=== PATIENT | male | born 1955 | race Caucasian/White ===

== ENCOUNTER 2020-10-08 08:16 | Inpatient (IN) | payer OTHER ==
[~2020-10-08] VITALS: Ht 180.3 cm; Wt 75.7 kg
[2020-10-08] MEDS ORDERED: INSULIN LANTUS (GLARGINE) 1 /0.01ml (100units/ml) SC ONE (08:45)
[2020-10-08] MEDS: SODIUM CHLORIDE 0.9% 1,000 ML IV SCH ×4 (08:45→21:59)
[2020-10-08] MEDS ORDERED: InsuLIN R (HUMAN) 100 UNITS in SODIUM CHL 0.9% 99 ML IV SCH (08:45)
[2020-10-08] MEDS ORDERED: DEXTROSE (50%) 50ML SYRG IV PRN ×2 (08:45→09:45)
[2020-10-08] MEDS: ACCU-CHEK COMFORT CURVE STRIP VI SCH ×10 (09:00→22:44)
[2020-10-08 09:09] LABS: Hemoglobin 15.9 g/dL (13.5-17.5); Platelet Count (auto) 269 10^3/uL (140-450)
[2020-10-08 09:10] LABS: Hematocrit 49.7 % (41.0-53.0); Mean Corpuscular Hemoglobin 35.7 pg (28.0-32.0); Mean Corpuscular Hgb Conc. 32.1 g/dL (32.0-36.0); Mean Corpuscular Volume 111.5 fL (80.0-100.0); Red Blood Cells 4.46 10^6/uL (4.5-5.90); Red Cell Distribution Width 15.3 % (11.8-14.3); White Blood Cell 12.9 10^3/uL (4.4-10.8)
[2020-10-08 09:13] LABS: Basophils % (manual) 0 (0.0-2.0); Blast Cells 0; Eosinophils % (manual) 0 (0-7); Metamyelocytes % 0; Myelocytes % 0; Promyelocytes % 0; Reactive Lymphocytes 0
[2020-10-08 09:17] LABS: Calcium 9.2 mg/dL (8.5-10.1); Magnesium 2.4 mg/dL (1.6-2.6); Potassium 4.6 mmol/L (3.5-5.1)
[2020-10-08 09:26] LABS: BUN/Creatinine Ratio 10.1
[2020-10-08] MEDS ORDERED: SODIUM BICARBONATE 8.4 % INJ 50ML VIAL IV ONE ×2 (09:45→13:30)
[2020-10-08] MEDS ORDERED: SODIUM CHLORIDE 0.9% 1,000 ML IV ONE (09:45)
[2020-10-08] MEDS ORDERED: SODIUM CHLORIDE 0.9% 250 ML IV ONE (09:45)
[2020-10-08] MEDS: InsuLIN R (HUMAN) 100 UNITS in SODIUM CHL 0.9% 99 ML IV SCH (09:45)
[2020-10-08 10:28] LABS: Band Neutrophils % (manual) 19; Lymphocytes % (manual) 4 (10.0-50.0); Monocytes % (manual) 13 (0-12)
[2020-10-08] MEDS ORDERED: LORazepam 2MG/ML-1ML VIAL ONE (12:03)
[2020-10-08] MEDS ORDERED: ETOMIDATE (2MG/ML) 20ML VIAL IV ONE ×2 (12:05→12:15)
[2020-10-08] MEDS ORDERED: SUCCINYLCHOLINE CHLORIDE 20 MG/ML 10ML VIAL IV ONE ×2 (12:05→12:15)
[2020-10-08] MEDS ORDERED: NOREPINEPHRINE 8 MG/250ML KIT 250 ML IV ONE (12:07)
[2020-10-08] MEDS ORDERED: MIDAZOLAM DRIP 50 mg/50mL 50 ML IV ONE (12:09)
[2020-10-08] MEDS ORDERED: NOREPINEPHRINE 8 MG/250ML KIT 250 ML IV SCH (12:15)
[2020-10-08] MEDS: MIDAZOLAM DRIP 50 mg/50mL 50 ML IV SCH (12:15)
[2020-10-08] MEDS ORDERED: dilTIAZem 25 MG/5 ML VIAL IV ONE ×2 (12:24→16:00)
[2020-10-08] MEDS ORDERED: PHENYLEPHRINE IV 250 ML IV ONE ×4 (12:30→23:26)
[2020-10-08] MEDS ORDERED: AMIODARONE 450mg/250ml AE 250 ML IV SCH (12:30)
[2020-10-08] MEDS ORDERED: dilTIAZem 125mg/125ml BAG KIT 125 ML IV ONE (12:30)
[2020-10-08] MEDS ORDERED: SODIUM CHLORIDE 0.9% 1,000 ML IV SCH (12:45)
[2020-10-08] MEDS ORDERED: PROPOFOL 100 ML IV ONE (14:01)
[2020-10-08 14:04] VITALS: BP 98/57
[2020-10-08] MEDS: PROPOFOL 100 ML IV SCH (14:23)
[2020-10-08 15:00] LABS: BUN/Creatinine Ratio 12.4; Calcium 7.3 mg/dL (8.5-10.1); Potassium 3.2 mmol/L (3.5-5.1)
[2020-10-08 15:30] VITALS: BP 86/65
[2020-10-08] MEDS ORDERED: NITROGLYCERIN 0.4 MG SL TAB SL PRN (16:30)
[2020-10-08 16:38] LABS: Urine Bacteria NONE SEEN /hpf (None Seen); Urine Blood 1+ /uL (Negative); Urine WBC 2 /hpf (0 - 3)
[2020-10-08 16:46] LABS: Alcohol, Urine < 3.0 mg/dL (0-10); Amphetamine Screen, Urine NEGATIVE (NEGATIVE); Barbiturate Scree,Urine NEGATIVE (NEGATIVE); Benzodiazephine Screen, Urine POSITIVE (NEGATIVE); Cannabinoid Screen, Urine NEGATIVE (NEGATIVE); Cocaine Screen, Urine NEGATIVE (NEGATIVE); Opiate Scree,Urine NEGATIVE (NEGATIVE); Phencyclidine Screen, Urine NEGATIVE (NEGATIVE)
[2020-10-08] MEDS: dilTIAZem 125mg/125ml BAG KIT 125 ML IV SCH (17:30)
[2020-10-08] MEDS ORDERED: DIGOXIN (250MCG/ML) 2 ML AMPULE IV ONE ×2 (17:45→18:00)
[2020-10-08 18:08] VITALS: BP 107/66
[2020-10-08] MEDS: AMIODARONE 450mg/250ml AE 250 ML IV SCH (18:50)
[2020-10-08] MEDS: POTASSIUM CHL 20MEQ/100ML 100 ML IV SCH ×2 (20:04→21:59)
[2020-10-08] MEDS: PANTOPRAZOLE 40 MG/10 ML VIAL INJ IV SCH (21:59)
[2020-10-08 22:26] LABS: Hematocrit 38.6 % (41.0-53.0); Hemoglobin 13.5 g/dL (13.5-17.5)
[2020-10-08 22:37] VITALS: BP 115/53
[2020-10-08 22:42] LABS: BUN/Creatinine Ratio 13.3; Calcium 7.4 mg/dL (8.5-10.1); Potassium 3.7 mmol/L (3.5-5.1)
[2020-10-08 23:45] LABS: Partial Thromboplastin Time 62.4 sec (23.0-31.2)
[2020-10-08 23:50] LABS: INR > 8.0 (0.9-1.15)
[2020-10-09] VITALS (9 sets, daily range): BP systolic 108–151; BP diastolic 52–93
[2020-10-09] MEDS: ACCU-CHEK COMFORT CURVE STRIP VI SCH ×16 (00:28→23:21)
[2020-10-09 01:12] LABS: Hemoglobin 13.6 g/dL (13.5-17.5)
[2020-10-09 01:15] LABS: Hematocrit 38.4 % (41.0-53.0)
[2020-10-09 01:33] LABS: Calcium 7.7 mg/dL (8.5-10.1); Potassium 3.9 mmol/L (3.5-5.1)
[2020-10-09 01:37] LABS: INR > 8.0 (0.9-1.15)
[2020-10-09] MEDS: PROPOFOL 100 ML IV SCH (02:00)
[2020-10-09] MEDS: MIDAZOLAM DRIP 50 mg/50mL 50 ML IV SCH (02:00)
[2020-10-09] MEDS: SODIUM CHLORIDE 0.9% 1,000 ML IV SCH ×3 (03:49→17:40)
[2020-10-09] MEDS ORDERED: PHENYLEPHRINE IV 250 ML IV ONE (05:44)
[2020-10-09 07:07] LABS: Hematocrit 36.2 % (41.0-53.0)
[2020-10-09 08:01] LABS: INR 3.38 (0.9-1.15)
[2020-10-09] MEDS: AMIODARONE 450mg/250ml AE 250 ML IV SCH (09:44)
[2020-10-09] MEDS: InsuLIN R (HUMAN) 100 UNITS in SODIUM CHL 0.9% 99 ML IV SCH ×2 (09:49→10:35)
[2020-10-09] MEDS: PANTOPRAZOLE 40 MG/10 ML VIAL INJ IV SCH ×2 (10:17→22:12)
[2020-10-09] MEDS: INSULIN LANTUS (GLARGINE) 1 /0.01ml (100units/ml) SC SCH (10:22)
[2020-10-09] MEDS: DIGOXIN 0.125 MG TAB PO SCH (10:32)
[2020-10-09] MEDS: ACETAMINOPHEN 650 mg PER 20.3 mL UD GT PRN (10:34)
[2020-10-09 10:56] LABS: Alanine Aminotransferase 15 U/L (16-61); Aspartate Aminotransferase 20 U/L (15-37)
[2020-10-09 13:42] LABS: Hematocrit 36.9 % (41.0-53.0); Hemoglobin 12.9 g/dL (13.5-17.5)
[2020-10-09 14:30] LABS: Magnesium 1.5 mg/dL (1.6-2.6); Potassium 3.5 mmol/L (3.5-5.1)
[2020-10-09] MEDS: POTASSIUM CHL 20MEQ/100ML 100 ML IV SCH ×2 (14:45→16:58)
[2020-10-09] MEDS ORDERED: ASPirin 81 mg TAB PO ONE (14:45)
[2020-10-09] MEDS: MAGNESIUM SULFATE 1GM/100ML 100 ML IV SCH ×2 (15:07→16:09)
[2020-10-09] MEDS ORDERED: DIGOXIN (250MCG/ML) 2 ML AMPULE IV ONE (17:00)
[2020-10-09 17:04] LABS: Cholesterol 124 mg/dL (< 200); Triglycerides 81 mg/dL (< 150)
[2020-10-09 17:07] LABS: HDL Cholesterol 58 mg/dL (40-59); LDL Cholesterol 52 mg/dL (< 100)
[2020-10-09] MEDS: dilTIAZem 125mg/125ml BAG KIT 125 ML IV SCH (17:40)
[2020-10-09] MEDS ORDERED: ENOXAPARIN SOD 40 MG/0.4 ML SYRINGE SC SCH (22:00)
[2020-10-09] MEDS: ENOXAPARIN SOD 40 MG/0.4 ML SYRINGE SC SCH (22:12)
[2020-10-09] MEDS: MAGNESIUM OXIDE 400 MG TAB PO SCH (23:17)
[2020-10-10] VITALS (21 sets, daily range): BP systolic 122–175; BP diastolic 70–94
[2020-10-10] MEDS: AMIODARONE 450mg/250ml AE 250 ML IV SCH (00:30)
[2020-10-10] MEDS: PROPOFOL 100 ML IV SCH (01:55)
[2020-10-10] MEDS: ACCU-CHEK COMFORT CURVE STRIP VI SCH ×14 (01:56→20:00)
[2020-10-10] MEDS: hydrALAZINE HCL 20 MG/ML VL IV PRN (01:56)
[2020-10-10] MEDS: dilTIAZem 125mg/125ml BAG KIT 125 ML IV SCH (02:08)
[2020-10-10] MEDS: ACETAMINOPHEN 650 mg PER 20.3 mL UD GT PRN (02:14)
[2020-10-10] MEDS: CARVEDILOL 12.5 MG TAB PO SCH ×2 (03:22→08:36)
[2020-10-10 07:53] LABS: Basophils # (auto) 0 10 ^3/uL (0-0.2); Basophils % (auto) 0.6 % (0.0-2.0); Eosinophils # (auto) 0.1 10 ^3/uL (0-0.8); Hemoglobin 14.1 g/dL (13.5-17.5); Lymphocytes # (auto) 0.7 10 ^3/uL (0.4-5.4); Lymphocytes % (auto) 9.2 % (10.0-50.0); Mean Corpuscular Hgb Conc. 35.5 g/dL (32.0-36.0); Monocytes # (auto) 1.3 10 ^3/uL (0-1.3); Neutrophils # (auto) 5.5 10 ^3/uL (1.6-8.6)
[2020-10-10 07:55] LABS: Hematocrit 39.8 % (41.0-53.0); Mean Corpuscular Volume 101.3 fL (80.0-100.0); Monocytes % (auto) 16.7 % (0.0-12.0); Neutrophils % (auto) 72.5 % (37.0-80.0); Nucleated Red Blood Cells % 0.1 %; Platelet Count (auto) 144 10^3/uL (140-450); Red Blood Cells 3.93 10^6/uL (4.5-5.90); Red Cell Distribution Width 14.3 % (11.8-14.3); White Blood Cell 7.6 10^3/uL (4.4-10.8)
[2020-10-10 08:15] LABS: Albumin 2.6 g/dL (3.4-5.0); Calcium 8.3 mg/dL (8.5-10.1); Potassium 3.1 mmol/L (3.5-5.1)
[2020-10-10 08:18] LABS: BUN/Creatinine Ratio 12.6
[2020-10-10 08:23] LABS: Bilirubin, Total 0.7 mg/dL (0.2-1.0); Total Protein 5.4 g/dL (6.4-8.2)
[2020-10-10] MEDS: ASPirin 81 mg TAB PO SCH (08:35)
[2020-10-10] MEDS: PANTOPRAZOLE 40 MG/10 ML VIAL INJ IV SCH ×2 (08:35→23:02)
[2020-10-10] MEDS: DIGOXIN 0.125 MG TAB PO SCH (08:36)
[2020-10-10] MEDS: MAGNESIUM OXIDE 400 MG TAB PO SCH ×2 (08:37→23:02)
[2020-10-10] MEDS: INSULIN LANTUS (GLARGINE) 1 /0.01ml (100units/ml) SC SCH (08:38)
[2020-10-10] MEDS: MIDAZOLAM DRIP 50 mg/50mL 50 ML IV SCH (10:25)
[2020-10-10] MEDS: InsuLIN REG 1unit/0.01ml Soln (100units/ml) SC SCH ×2 (16:13→20:00)
[2020-10-10] MEDS: ENOXAPARIN SOD 40 MG/0.4 ML SYRINGE SC SCH (23:02)
[2020-10-11] VITALS (85 sets, daily range): BP systolic 117–193; BP diastolic 68–107
[2020-10-11] MEDS: PROPOFOL 100 ML IV SCH ×3 (01:41→10:46)
[2020-10-11] MEDS: InsuLIN REG 1unit/0.01ml Soln (100units/ml) SC SCH ×6 (04:00→21:16)
[2020-10-11] MEDS: ACCU-CHEK COMFORT CURVE STRIP VI SCH ×2 (04:00)
[2020-10-11 05:18] LABS: Albumin 2.4 g/dL (3.4-5.0); BUN/Creatinine Ratio 20.7; Calcium 8.6 mg/dL (8.5-10.1); Magnesium 2.1 mg/dL (1.6-2.6); Potassium 3.1 mmol/L (3.5-5.1)
[2020-10-11 05:20] LABS: Bilirubin, Total 0.8 mg/dL (0.2-1.0); Total Protein 5.3 g/dL (6.4-8.2)
[2020-10-11] MEDS: POTASSIUM CHL 20MEQ/100ML 100 ML IV SCH ×2 (06:53→08:53)
[2020-10-11] MEDS: MAGNESIUM OXIDE 400 MG TAB PO SCH ×2 (10:44→20:54)
[2020-10-11] MEDS: ASPirin 81 mg TAB PO SCH (10:44)
[2020-10-11] MEDS: PANTOPRAZOLE 40 MG/10 ML VIAL INJ IV SCH ×2 (10:44→20:54)
[2020-10-11] MEDS: D5W/ SOD CHL 0.9%/KCL 20MEQ 1,000 ML IV SCH ×2 (10:46→20:54)
[2020-10-11] MEDS: MIDAZOLAM DRIP 50 mg/50mL 50 ML IV SCH (12:15)
[2020-10-11] MEDS: INSULIN LANTUS (GLARGINE) 1 /0.01ml (100units/ml) SC SCH (12:30)
[2020-10-11] MEDS: hydrALAZINE HCL 20 MG/ML VL IV PRN (13:58)
[2020-10-11 19:25] LABS: BUN/Creatinine Ratio 21.7; Calcium 8.9 mg/dL (8.5-10.1); Potassium 3.4 mmol/L (3.5-5.1)
[2020-10-11] MEDS: ENOXAPARIN SOD 40 MG/0.4 ML SYRINGE SC SCH (20:54)
[2020-10-12] VITALS (39 sets, daily range): BP systolic 144–188; BP diastolic 78–123
[2020-10-12 04:00] LABS: Lymphocytes # (auto) 0.7 10 ^3/uL (0.4-5.4); Mean Corpuscular Volume 100.8 fL (80.0-100.0); Monocytes # (auto) 1.7 10 ^3/uL (0-1.3); Monocytes % (auto) 17.6 % (0.0-12.0); Neutrophils # (auto) 7.2 10 ^3/uL (1.6-8.6); Nucleated Red Blood Cells % 0.1 %; White Blood Cell 9.9 10^3/uL (4.4-10.8)
[2020-10-12] MEDS: ACCU-CHEK COMFORT CURVE STRIP VI SCH ×6 (04:00→23:42)
[2020-10-12] MEDS: InsuLIN REG 1unit/0.01ml Soln (100units/ml) SC SCH ×7 (04:00→23:43)
[2020-10-12 04:01] LABS: Basophils # (auto) 0 10 ^3/uL (0-0.2); Basophils % (auto) 0.4 % (0.0-2.0); Eosinophils # (auto) 0.2 10 ^3/uL (0-0.8); Eosinophils % (auto) 1.7 % (0.0-7.0); Hemoglobin 14.3 g/dL (13.5-17.5); Lymphocytes % (auto) 7.4 % (10.0-50.0); Mean Corpuscular Hemoglobin 36.1 pg (28.0-32.0); Mean Corpuscular Hgb Conc. 35.8 g/dL (32.0-36.0); Neutrophils % (auto) 72.9 % (37.0-80.0); Platelet Count (auto) 203 10^3/uL (140-450); Red Blood Cells 3.97 10^6/uL (4.5-5.90); Red Cell Distribution Width 14.4 % (11.8-14.3)
[2020-10-12 04:18] LABS: Potassium 3.2 mmol/L (3.5-5.1)
[2020-10-12 04:24] LABS: Albumin 2.6 g/dL (3.4-5.0); BUN/Creatinine Ratio 21.3; Calcium 8.8 mg/dL (8.5-10.1)
[2020-10-12 04:26] LABS: Bilirubin, Total 0.8 mg/dL (0.2-1.0); INR 1.02 (0.9-1.15); Partial Thromboplastin Time 25.6 sec (23.0-31.2); Total Protein 5.7 g/dL (6.4-8.2)
[2020-10-12] MEDS: D5W/ SOD CHL 0.9%/KCL 20MEQ 1,000 ML IV SCH (06:03)
[2020-10-12] MEDS: hydrALAZINE HCL 20 MG/ML VL IV PRN ×3 (06:10→14:03)
[2020-10-12] MEDS ORDERED: METOPROLOL TARTRATE 1MG/1ML-5ML VIAL IV ONE (08:15)
[2020-10-12] MEDS ORDERED: ALPRAZolam 0.5 MG TAB PO ONE (08:15)
[2020-10-12] MEDS: MAGNESIUM OXIDE 400 MG TAB PO SCH ×2 (08:45→21:05)
[2020-10-12] MEDS: ASPirin 81 mg TAB PO SCH (08:45)
[2020-10-12] MEDS: PANTOPRAZOLE 40 MG/10 ML VIAL INJ IV SCH ×2 (09:15→21:04)
[2020-10-12] MEDS ORDERED: POTASSIUM EFFERVESENT TAB 25 MEQ PO ONE (09:30)
[2020-10-12] MEDS ORDERED: METOPROLOL TARTRATE 25 MG TAB PO SCH (10:00)
[2020-10-12] MEDS ORDERED: METOPROLOL TARTRATE 1MG/1ML-5ML VIAL IV PRN (10:00)
[2020-10-12] MEDS: D5W/SOD CHL 0.45%/KCL 20MEQ 1,000 ML IV SCH ×2 (10:19→20:29)
[2020-10-12] MEDS: ALPRAZolam 0.5 MG TAB PO PRN ×4 (10:30→23:35)
[2020-10-12] MEDS: INSULIN LANTUS (GLARGINE) 1 /0.01ml (100units/ml) SC SCH (10:34)
[2020-10-12] MEDS ORDERED: POTASSIUM CHL 20MEQ/100ML 100 ML IV ONE (10:45)
[2020-10-12] MEDS: MIDAZOLAM DRIP 50 mg/50mL 50 ML IV SCH (11:55)
[2020-10-12] MEDS: PROPOFOL 100 ML IV SCH (11:56)
[2020-10-12] MEDS: Glucerna Carbsteady SHAKE Vanilla 8oz PO SCH ×2 (12:03→18:00)
[2020-10-12] MEDS ORDERED: POTASSIUM CHL 20MEQ/100ML 200 ML IV ONE (13:56)
[2020-10-12] MEDS: POTASSIUM CHL 20MEQ/100ML 100 ML IV SCH ×2 (14:13→15:15)
[2020-10-12] MEDS: METOPROLOL TARTRATE 50 MG TAB PO SCH (21:04)
[2020-10-12] MEDS: ENOXAPARIN SOD 40 MG/0.4 ML SYRINGE SC SCH (21:05)
[2020-10-12] MEDS: METOPROLOL TARTRATE 1MG/1ML-5ML VIAL IV PRN (22:12)
[2020-10-13] VITALS (27 sets, daily range): BP systolic 131–189; BP diastolic 72–128
[2020-10-13 00:18] LABS: BUN/Creatinine Ratio 17.9; Calcium 8.7 mg/dL (8.5-10.1); Potassium 3.4 mmol/L (3.5-5.1)
[2020-10-13] MEDS: ACCU-CHEK COMFORT CURVE STRIP VI SCH ×5 (04:00→21:18)
[2020-10-13] MEDS: InsuLIN REG 1unit/0.01ml Soln (100units/ml) SC SCH ×5 (04:00→21:20)
[2020-10-13 06:09] LABS: Hematocrit 39.2 % (41.0-53.0)
[2020-10-13] MEDS: METOPROLOL TARTRATE 1MG/1ML-5ML VIAL IV PRN (06:10)
[2020-10-13 06:11] LABS: Hemoglobin 13.9 g/dL (13.5-17.5); Mean Corpuscular Hemoglobin 35.8 pg (28.0-32.0); Mean Corpuscular Hgb Conc. 35.3 g/dL (32.0-36.0); Mean Corpuscular Volume 101.2 fL (80.0-100.0); Platelet Count (auto) 220 10^3/uL (140-450); Red Blood Cells 3.88 10^6/uL (4.5-5.90); Red Cell Distribution Width 14.6 % (11.8-14.3); White Blood Cell 9.2 10^3/uL (4.4-10.8)
[2020-10-13 06:29] LABS: INR 1.16 (0.9-1.15); Partial Thromboplastin Time 28.2 sec (23.0-31.2)
[2020-10-13 06:34] LABS: Potassium 3.3 mmol/L (3.5-5.1)
[2020-10-13 06:42] LABS: Albumin 2.4 g/dL (3.4-5.0); BUN/Creatinine Ratio 17.7; Calcium 8.7 mg/dL (8.5-10.1)
[2020-10-13 06:47] LABS: Bilirubin, Total 0.8 mg/dL (0.2-1.0); Total Protein 5.5 g/dL (6.4-8.2)
[2020-10-13 07:22] LABS: Basophils % (manual) 0 (0.0-2.0); Blast Cells 0; Metamyelocytes % 0; Myelocytes % 0; Promyelocytes % 0; Reactive Lymphocytes 0
[2020-10-13] MEDS: Glucerna Carbsteady SHAKE Vanilla 8oz PO SCH ×3 (08:00→19:08)
[2020-10-13 08:33] LABS: Band Neutrophils % (manual) 2; Eosinophils % (manual) 7 (0-7); Lymphocytes % (manual) 11 (10.0-50.0); Monocytes % (manual) 11 (0-12)
[2020-10-13] MEDS: ASPirin 81 mg TAB PO SCH (10:00)
[2020-10-13] MEDS: METOPROLOL TARTRATE 50 MG TAB PO SCH (10:00)
[2020-10-13] MEDS: MAGNESIUM OXIDE 400 MG TAB PO SCH ×2 (10:00→21:18)
[2020-10-13] MEDS: PANTOPRAZOLE 40 MG/10 ML VIAL INJ IV SCH (10:14)
[2020-10-13] MEDS: INSULIN LANTUS (GLARGINE) 1 /0.01ml (100units/ml) SC SCH (10:15)
[2020-10-13] MEDS: hydrALAZINE HCL 20 MG/ML VL IV PRN (10:30)
[2020-10-13] MEDS: MIDAZOLAM DRIP 50 mg/50mL 50 ML IV SCH (12:15)
[2020-10-13] MEDS: D5W/SOD CHL 0.45%/KCL 20MEQ 1,000 ML IV SCH (12:23)
[2020-10-13] MEDS ORDERED: FUROSEMIDE 20 MG/2 ML VIAL IV ONE (12:30)
[2020-10-13] MEDS: AMIODARONE HCL 200 MG TAB PO SCH (12:34)
[2020-10-13] MEDS: POTASSIUM CHL 20MEQ/100ML 100 ML IV SCH ×3 (12:37→18:09)
[2020-10-13] MEDS ORDERED: VERAPAMIL 2.5MG/ML INJ 2ML VIAL IV ONE (12:56)
[2020-10-13] MEDS ORDERED: HEPARIN SODIUM (PORCINE) 5000 UNITS/ML 1ML VIAL ONE (12:56)
[2020-10-13] MEDS ORDERED: fentaNYL CITRATE 100 MCG/2 ML VL ONE (12:56)
[2020-10-13] MEDS ORDERED: MIDAZOLAM HCL 1MG/1ML-2 ML VIAL ONE (12:56)
[2020-10-13] MEDS ORDERED: ANGIOMAX 250 MG VIAL IV ONE (12:56)
[2020-10-13] MEDS ORDERED: SODIUM CHL 0.9% 0 ML ONE (12:56)
[2020-10-13] MEDS ORDERED: LIDOCAINE 2%HCL (LOCAL ANESTH.) INJ 20ML MDV ONE (13:03)
[2020-10-13] MEDS ORDERED: IOHEXOL 350 MG/ML 100ML IJ ONE (13:03)
[2020-10-13] MEDS ORDERED: IODIXANOL 320MG/ML 100ML BTL IV ONE (13:43)
[2020-10-13] MEDS: PROPOFOL 100 ML IV SCH (14:15)
[2020-10-13] MEDS ORDERED: DEXTROSE (50%) 50ML SYRG IV PRN (16:00)
[2020-10-13] MEDS ORDERED: LABETALOL HCL 5 MG/ML 4ML SYRINGE IV PRN ×2 (16:00)
[2020-10-13] MEDS: ACETAMINOPHEN 650 mg PER 20.3 mL UD GT PRN (17:43)
[2020-10-13] MEDS: FUROSEMIDE 20 MG/2 ML VIAL IV SCH (18:17)
[2020-10-13] MEDS: PANTOPRAZOLE 40 MG TAB PO SCH (21:18)
[2020-10-13] MEDS: METOPROLOL TARTRATE 25 MG TAB PO SCH (21:18)
[2020-10-13] MEDS: ENOXAPARIN SOD 40 MG/0.4 ML SYRINGE SC SCH (21:18)
[2020-10-14 00:27] LABS: Folate (Folic Acid) 17.88 ng/mL (5.38-24)
[2020-10-14 05:49] VITALS: BP 158/92
[2020-10-14] MEDS: FUROSEMIDE 20 MG/2 ML VIAL IV SCH ×2 (05:51→17:07)
[2020-10-14] MEDS: ACCU-CHEK COMFORT CURVE STRIP VI SCH ×4 (05:52→21:37)
[2020-10-14] MEDS: InsuLIN REG 1unit/0.01ml Soln (100units/ml) SC SCH ×4 (05:55→21:38)
[2020-10-14] MEDS: Glucerna Carbsteady SHAKE Vanilla 8oz PO SCH ×3 (08:00→18:11)
[2020-10-14 08:33] VITALS: BP 151/83
[2020-10-14] MEDS: AMIODARONE HCL 200 MG TAB PO SCH (09:35)
[2020-10-14] MEDS: ASPirin 81 mg TAB PO SCH (09:35)
[2020-10-14] MEDS: METOPROLOL TARTRATE 25 MG TAB PO SCH ×2 (09:36→21:36)
[2020-10-14] MEDS: MAGNESIUM OXIDE 400 MG TAB PO SCH ×2 (09:36→21:36)
[2020-10-14] MEDS: PANTOPRAZOLE 40 MG TAB PO SCH ×2 (09:36→21:37)
[2020-10-14] MEDS ORDERED: INSULIN LANTUS (GLARGINE) 1 /0.01ml (100units/ml) SC SCH (10:00)
[2020-10-14] MEDS ORDERED: ALLOPURINOL 100 MG TAB PO ONE (11:00)
[2020-10-14 13:51] VITALS: BP 110/73
[2020-10-14 16:50] VITALS: BP 144/83
[2020-10-14] MEDS ORDERED: metFORMIN HYDROCHLORIDE 500 MG TAB PO SCH (18:00)
[2020-10-14] MEDS: APIXABAN 5 MG TAB PO SCH (21:35)
[2020-10-14 22:00] VITALS: BP 123/73
[2020-10-14] MEDS ORDERED: TERAZOSIN HCL 1 MG CAP PO SCH ×2 (22:00)
[2020-10-15] VITALS (52 sets, daily range): BP systolic 80–136; BP diastolic 41–66
[2020-10-15] MEDS: ACCU-CHEK COMFORT CURVE STRIP VI SCH ×4 (05:59→21:52)
[2020-10-15] MEDS: ACETYLCYSTEINE 10 %(100MG/ML) SOL 4ML NEB SCH ×3 (06:00→15:01)
[2020-10-15] MEDS: IPRATROPIUM BROM 0.5 MG/2.5ML INH SOL NEB SCH ×3 (06:00→15:01)
[2020-10-15] MEDS: ALBUTEROL SULF 2.5 MG/0.5ML(0.5%) NEB SOLN NEB SCH ×3 (06:00→15:00)
[2020-10-15] MEDS: InsuLIN REG 1unit/0.01ml Soln (100units/ml) SC SCH ×4 (06:22→21:52)
[2020-10-15] MEDS: FUROSEMIDE 20 MG/2 ML VIAL IV SCH (06:23)
[2020-10-15] MEDS: LEVOTHYROXINE SODIUM 25 MCG TAB PO SCH (06:24)
[2020-10-15] MEDS ORDERED: SODIUM CHLORIDE 0.9% 1,000 ML IV ONE (09:15)
[2020-10-15] MEDS ORDERED: SUCCINYLCHOLINE CHLORIDE 20 MG/ML 10ML VIAL IV ONE (09:19)
[2020-10-15] MEDS ORDERED: ROCURONIUM 10MG/ML 10ML VIAL IV ONE (09:19)
[2020-10-15] MEDS ORDERED: ETOMIDATE (2MG/ML) 20ML VIAL IV ONE (09:19)
[2020-10-15] MEDS ORDERED: fentaNYL Drip 2500mCg/250mlNS 250 ML IV ONE (09:25)
[2020-10-15] MEDS ORDERED: MIDAZOLAM DRIP 50 mg/50mL 50 ML IV ONE (09:26)
[2020-10-15] MEDS ORDERED: LORazepam 2MG/ML-1ML VIAL IV PRN (09:30)
[2020-10-15] MEDS ORDERED: NOREPINEPHRINE 8 MG/250ML KIT 250 ML IV ONE (09:42)
[2020-10-15] MEDS: MIDAZOLAM DRIP 50 mg/50mL 50 ML IV SCH (09:45)
[2020-10-15] MEDS ORDERED: VANCOMYCIN PER PHARMACY 0 MG IV SCH (09:45)
[2020-10-15] MEDS: fentaNYL Drip 2500mCg/250mlNS 250 ML IV SCH (09:45)
[2020-10-15] MEDS: NOREPINEPHRINE 8 MG/250ML KIT 250 ML IV SCH (09:45)
[2020-10-15] MEDS: APIXABAN 5 MG TAB PO SCH ×2 (10:00→21:52)
[2020-10-15] MEDS ORDERED: ALLOPURINOL 100 MG TAB PO SCH (10:00)
[2020-10-15] MEDS: PANTOPRAZOLE 40 MG/10 ML VIAL INJ IV SCH ×2 (10:00→21:51)
[2020-10-15] MEDS ORDERED: PANTOPRAZOLE 40 MG/10 ML VIAL INJ IV SCH (10:00)
[2020-10-15] MEDS: METOPROLOL TARTRATE 25 MG TAB PO SCH ×2 (10:00→21:52)
[2020-10-15] MEDS: AMIODARONE HCL 200 MG TAB PO SCH (10:00)
[2020-10-15] MEDS ORDERED: IPRATROPIUM BROM 0.5 MG/2.5ML INH SOL NEB SCH (10:00)
[2020-10-15] MEDS ORDERED: DULoxetine HCL 30 MG CAP PO SCH (10:00)
[2020-10-15] MEDS ORDERED: VANCOMYCIN 1GM/250ML 250 ML IV ONE (10:15)
[2020-10-15 10:30] LABS: Platelet Count (auto) 331 10^3/uL (140-450); White Blood Cell 3.1 10^3/uL (4.4-10.8)
[2020-10-15 10:32] LABS: Hematocrit 37.4 % (41.0-53.0); Hemoglobin 13.5 g/dL (13.5-17.5); Mean Corpuscular Hemoglobin 36.3 pg (28.0-32.0); Mean Corpuscular Hgb Conc. 36.1 g/dL (32.0-36.0); Mean Corpuscular Volume 100.4 fL (80.0-100.0); Red Blood Cells 3.73 10^6/uL (4.5-5.90); Red Cell Distribution Width 14.5 % (11.8-14.3)
[2020-10-15 10:39] LABS: Albumin 2.1 g/dL (3.4-5.0); Calcium 8.1 mg/dL (8.5-10.1); Potassium 3.2 mmol/L (3.5-5.1)
[2020-10-15 10:43] LABS: BUN/Creatinine Ratio 20.5; Basophils % (manual) 0 (0.0-2.0); Bilirubin, Total 1.4 mg/dL (0.2-1.0); Blast Cells 0; Promyelocytes % 0; Reactive Lymphocytes 0; Total Protein 5.6 g/dL (6.4-8.2)
[2020-10-15 11:17] LABS: Band Neutrophils % (manual) 26; Eosinophils % (manual) 4 (0-7); Lymphocytes % (manual) 6 (10.0-50.0); Metamyelocytes % 3; Monocytes % (manual) 3 (0-12); Myelocytes % 3
[2020-10-15] MEDS: PIPERACILLIN-TAZOB 3.375GM 100 ML IV SCH ×3 (13:00→23:30)
[2020-10-15] MEDS ORDERED: POTASSIUM CHL 20MEQ/100ML 200 ML IV ONE (13:11)
[2020-10-15] MEDS: POTASSIUM CHL 20MEQ/100ML 100 ML IV SCH ×2 (13:15→15:15)
[2020-10-15] MEDS: ALBUMIN 25% 100 ML IV SCH (17:14)
[2020-10-16] VITALS (63 sets, daily range): BP systolic 91–137; BP diastolic 48–78
[2020-10-16] MEDS: NOREPINEPHRINE 8 MG/250ML KIT 250 ML IV SCH ×2 (00:35→14:03)
[2020-10-16] MEDS: ALBUMIN 25% 100 ML IV SCH ×2 (00:44→08:45)
[2020-10-16] MEDS: MIDAZOLAM DRIP 50 mg/50mL 50 ML IV SCH ×3 (02:30→22:18)
[2020-10-16 04:44] LABS: Mean Corpuscular Hgb Conc. 34.9 g/dL (32.0-36.0); Red Blood Cells 3.59 10^6/uL (4.5-5.90); Red Cell Distribution Width 14.6 % (11.8-14.3)
[2020-10-16 04:46] LABS: Hematocrit 36.9 % (41.0-53.0); Hemoglobin 12.9 g/dL (13.5-17.5); Mean Corpuscular Hemoglobin 35.9 pg (28.0-32.0); Mean Corpuscular Volume 102.7 fL (80.0-100.0); Platelet Count (auto) 291 10^3/uL (140-450); White Blood Cell 21.8 10^3/uL (4.4-10.8)
[2020-10-16 04:56] LABS: Albumin 2.7 g/dL (3.4-5.0); BUN/Creatinine Ratio 17.4; Calcium 8.3 mg/dL (8.5-10.1)
[2020-10-16 04:59] LABS: Bilirubin, Total 1.2 mg/dL (0.2-1.0); Total Protein 6.1 g/dL (6.4-8.2)
[2020-10-16 05:27] LABS: Basophils % (manual) 0 (0.0-2.0); Blast Cells 0; Promyelocytes % 0; Reactive Lymphocytes 0
[2020-10-16] MEDS: PIPERACILLIN-TAZOB 3.375GM 100 ML IV SCH ×3 (05:39→18:10)
[2020-10-16] MEDS: fentaNYL Drip 2500mCg/250mlNS 250 ML IV SCH ×2 (05:40→22:18)
[2020-10-16 05:47] LABS: Band Neutrophils % (manual) 37; Eosinophils % (manual) 1 (0-7); Lymphocytes % (manual) 12 (10.0-50.0); Metamyelocytes % 4; Monocytes % (manual) 9 (0-12); Myelocytes % 1
[2020-10-16] MEDS: LEVOTHYROXINE SODIUM 25 MCG TAB PO SCH (06:11)
[2020-10-16] MEDS: InsuLIN REG 1unit/0.01ml Soln (100units/ml) SC SCH ×4 (06:11→21:52)
[2020-10-16] MEDS: ACCU-CHEK COMFORT CURVE STRIP VI SCH ×4 (06:40→21:52)
[2020-10-16] MEDS ORDERED: ALBUMIN 5% 250 ML IV ONE (09:00)
[2020-10-16] MEDS: SODIUM CHLORIDE 0.9% 1,000 ML IV SCH (09:18)
[2020-10-16] MEDS: IPRATROPIUM BROM 0.5 MG/2.5ML INH SOL NEB SCH ×4 (09:47→22:51)
[2020-10-16] MEDS: ALBUTEROL SULF 2.5 MG/0.5ML(0.5%) NEB SOLN NEB SCH ×4 (09:47→22:51)
[2020-10-16] MEDS: ACETYLCYSTEINE 10 %(100MG/ML) SOL 4ML NEB SCH ×4 (09:49→22:51)
[2020-10-16] MEDS ORDERED: METOPROLOL TARTRATE 25 MG TAB PO SCH (10:00)
[2020-10-16] MEDS: PANTOPRAZOLE 40 MG/10 ML VIAL INJ IV SCH ×2 (10:47→21:38)
[2020-10-16] MEDS: AMIODARONE HCL 200 MG TAB PO SCH (10:49)
[2020-10-16] MEDS: APIXABAN 5 MG TAB PO SCH (10:49)
[2020-10-16] MEDS: LINEZOLID 600MG/300ML 300 ML IV SCH ×2 (11:52→21:36)
[2020-10-16] MEDS: ENOXAPARIN SOD 80 MG/0.8ML SYRINGE SC SCH (21:36)
[2020-10-17] VITALS (77 sets, daily range): BP systolic 86–173; BP diastolic 46–92
[2020-10-17] MEDS: IPRATROPIUM BROM 0.5 MG/2.5ML INH SOL NEB SCH ×6 (02:37→22:21)
[2020-10-17] MEDS: ALBUTEROL SULF 2.5 MG/0.5ML(0.5%) NEB SOLN NEB SCH ×6 (02:37→22:21)
[2020-10-17] MEDS: ACETYLCYSTEINE 10 %(100MG/ML) SOL 4ML NEB SCH ×6 (02:38→22:21)
[2020-10-17 05:14] LABS: Neutrophils % (auto) 79.9 % (37.0-80.0)
[2020-10-17 05:17] LABS: Basophils # (auto) 0.1 10 ^3/uL (0-0.2); Basophils % (auto) 0.3 % (0.0-2.0); Eosinophils # (auto) 0.7 10 ^3/uL (0-0.8); Eosinophils % (auto) 3.3 % (0.0-7.0); Hematocrit 35.6 % (41.0-53.0); Hemoglobin 12.5 g/dL (13.5-17.5); Lymphocytes % (auto) 5.1 % (10.0-50.0); Mean Corpuscular Hemoglobin 35.7 pg (28.0-32.0); Mean Corpuscular Volume 102.1 fL (80.0-100.0); Monocytes # (auto) 2.3 10 ^3/uL (0-1.3); Monocytes % (auto) 11.4 % (0.0-12.0); Neutrophils # (auto) 16.2 10 ^3/uL (1.6-8.6); Platelet Count (auto) 222 10^3/uL (140-450); Red Blood Cells 3.49 10^6/uL (4.5-5.90); Red Cell Distribution Width 14.6 % (11.8-14.3); White Blood Cell 20.2 10^3/uL (4.4-10.8)
[2020-10-17] MEDS: LEVOTHYROXINE SODIUM 25 MCG TAB PO SCH (06:22)
[2020-10-17] MEDS: InsuLIN REG 1unit/0.01ml Soln (100units/ml) SC SCH ×4 (06:22→23:06)
[2020-10-17] MEDS: PIPERACILLIN-TAZOB 3.375GM 100 ML IV SCH ×3 (06:22→11:55)
[2020-10-17] MEDS: ACCU-CHEK COMFORT CURVE STRIP VI SCH ×4 (06:24→21:51)
[2020-10-17] MEDS: MIDAZOLAM DRIP 50 mg/50mL 50 ML IV SCH ×3 (06:44→21:50)
[2020-10-17 06:49] LABS: Potassium 4.4 mmol/L (3.5-5.1)
[2020-10-17 06:53] LABS: Albumin 2.6 g/dL (3.4-5.0); BUN/Creatinine Ratio 17.5; Calcium 9.2 mg/dL (8.5-10.1)
[2020-10-17 06:56] LABS: Total Protein 6.3 g/dL (6.4-8.2)
[2020-10-17] MEDS: PANTOPRAZOLE 40 MG/10 ML VIAL INJ IV SCH ×2 (10:11→21:33)
[2020-10-17] MEDS: AMIODARONE HCL 200 MG TAB PO SCH (10:11)
[2020-10-17] MEDS: ENOXAPARIN SOD 80 MG/0.8ML SYRINGE SC SCH ×2 (10:12→21:51)
[2020-10-17] MEDS: LINEZOLID 600MG/300ML 300 ML IV SCH ×2 (10:12→21:33)
[2020-10-17] MEDS: fentaNYL Drip 2500mCg/250mlNS 250 ML IV SCH (13:30)
[2020-10-17] MEDS: MEROPENEM 1GM IVPB 100 ML IV SCH ×2 (14:26→21:33)
[2020-10-17] MEDS: NOREPINEPHRINE 8 MG/250ML KIT 250 ML IV SCH (15:29)
[2020-10-17] MEDS: SODIUM CHLORIDE 0.9% 1,000 ML IV SCH (16:00)
[2020-10-18] VITALS (103 sets, daily range): BP systolic 79–152; BP diastolic 39–84
[2020-10-18] MEDS: SODIUM CHLORIDE 0.9% 1,000 ML IV SCH ×3 (01:00→20:59)
[2020-10-18] MEDS: IPRATROPIUM BROM 0.5 MG/2.5ML INH SOL NEB SCH ×6 (02:28→22:01)
[2020-10-18] MEDS: ALBUTEROL SULF 2.5 MG/0.5ML(0.5%) NEB SOLN NEB SCH ×6 (02:28→22:01)
[2020-10-18] MEDS: ACETYLCYSTEINE 10 %(100MG/ML) SOL 4ML NEB SCH ×6 (02:28→22:01)
[2020-10-18] MEDS: MEROPENEM 1GM IVPB 100 ML IV SCH ×3 (04:25→21:12)
[2020-10-18] MEDS: InsuLIN REG 1unit/0.01ml Soln (100units/ml) SC SCH ×4 (04:47→21:15)
[2020-10-18 05:05] LABS: Basophils # (auto) 0.1 10 ^3/uL (0-0.2); Basophils % (auto) 0.4 % (0.0-2.0); Hematocrit 33.2 % (41.0-53.0); Hemoglobin 11.6 g/dL (13.5-17.5); Lymphocytes # (auto) 0.9 10 ^3/uL (0.4-5.4)
[2020-10-18 05:08] LABS: Eosinophils # (auto) 0.3 10 ^3/uL (0-0.8); Eosinophils % (auto) 1.9 % (0.0-7.0); Mean Corpuscular Hgb Conc. 34.9 g/dL (32.0-36.0); Mean Corpuscular Volume 103.1 fL (80.0-100.0); Monocytes % (auto) 6.6 % (0.0-12.0); Neutrophils # (auto) 12.2 10 ^3/uL (1.6-8.6); Neutrophils % (auto) 85.1 % (37.0-80.0); Platelet Count (auto) 155 10^3/uL (140-450); Red Blood Cells 3.22 10^6/uL (4.5-5.90); Red Cell Distribution Width 14.7 % (11.8-14.3); White Blood Cell 14.4 10^3/uL (4.4-10.8)
[2020-10-18] MEDS: ACCU-CHEK COMFORT CURVE STRIP VI SCH ×4 (05:26→21:13)
[2020-10-18] MEDS: LEVOTHYROXINE SODIUM 25 MCG TAB PO SCH (05:26)
[2020-10-18 05:29] LABS: Calcium 8.2 mg/dL (8.5-10.1)
[2020-10-18 05:32] LABS: BUN/Creatinine Ratio 16.3
[2020-10-18 05:34] LABS: Bilirubin, Total 0.8 mg/dL (0.2-1.0); Total Protein 5.5 g/dL (6.4-8.2)
[2020-10-18] MEDS: fentaNYL Drip 2500mCg/250mlNS 250 ML IV SCH (05:40)
[2020-10-18 05:43] LABS: Potassium 3.5 mmol/L (3.5-5.1)
[2020-10-18] MEDS: MIDAZOLAM DRIP 50 mg/50mL 50 ML IV SCH (08:17)
[2020-10-18] MEDS: PANTOPRAZOLE 40 MG/10 ML VIAL INJ IV SCH ×2 (10:17→21:13)
[2020-10-18] MEDS: LINEZOLID 600MG/300ML 300 ML IV SCH (10:17)
[2020-10-18] MEDS: AMIODARONE HCL 200 MG TAB PO SCH (10:17)
[2020-10-18] MEDS: ENOXAPARIN SOD 80 MG/0.8ML SYRINGE SC SCH (10:17)
[2020-10-18] MEDS: APIXABAN 5 MG TAB PO SCH (21:13)
[2020-10-18] MEDS ORDERED: ENOXAPARIN SOD 100 MG/1 ML SYRINGE SC SCH (22:00)
[2020-10-19] VITALS (100 sets, daily range): BP systolic 94–169; BP diastolic 50–90
[2020-10-19] MEDS: ALBUTEROL SULF 2.5 MG/0.5ML(0.5%) NEB SOLN NEB SCH ×6 (01:59→22:16)
[2020-10-19] MEDS: IPRATROPIUM BROM 0.5 MG/2.5ML INH SOL NEB SCH ×6 (01:59→22:16)
[2020-10-19] MEDS: ACETYLCYSTEINE 10 %(100MG/ML) SOL 4ML NEB SCH ×6 (01:59→22:16)
[2020-10-19 05:09] LABS: Basophils # (auto) 0.1 10 ^3/uL (0-0.2); Basophils % (auto) 0.6 % (0.0-2.0); Eosinophils # (auto) 0.3 10 ^3/uL (0-0.8); Hemoglobin 12.3 g/dL (13.5-17.5); Lymphocytes # (auto) 1.2 10 ^3/uL (0.4-5.4); Mean Corpuscular Hemoglobin 35.9 pg (28.0-32.0); Mean Corpuscular Hgb Conc. 34.7 g/dL (32.0-36.0); Monocytes # (auto) 0.7 10 ^3/uL (0-1.3); Monocytes % (auto) 8.1 % (0.0-12.0); Neutrophils # (auto) 6.6 10 ^3/uL (1.6-8.6); Platelet Count (auto) 201 10^3/uL (140-450)
[2020-10-19 05:14] LABS: Hematocrit 35.5 % (41.0-53.0); Lymphocytes % (auto) 13.2 % (10.0-50.0); Mean Corpuscular Volume 103.7 fL (80.0-100.0); Neutrophils % (auto) 74.1 % (37.0-80.0); Red Blood Cells 3.42 10^6/uL (4.5-5.90); Red Cell Distribution Width 15.1 % (11.8-14.3); White Blood Cell 8.8 10^3/uL (4.4-10.8)
[2020-10-19 05:27] LABS: Potassium 3.1 mmol/L (3.5-5.1)
[2020-10-19 05:36] LABS: Albumin 2.3 g/dL (3.4-5.0); BUN/Creatinine Ratio 23.8; Bilirubin, Total 0.8 mg/dL (0.2-1.0); Calcium 8.9 mg/dL (8.5-10.1); Total Protein 6.1 g/dL (6.4-8.2)
[2020-10-19] MEDS: fentaNYL Drip 2500mCg/250mlNS 250 ML IV SCH (05:52)
[2020-10-19] MEDS: MEROPENEM 1GM IVPB 100 ML IV SCH ×3 (06:16→21:44)
[2020-10-19] MEDS: LEVOTHYROXINE SODIUM 25 MCG TAB PO SCH (06:16)
[2020-10-19] MEDS: SODIUM CHLORIDE 0.9% 1,000 ML IV SCH (06:17)
[2020-10-19] MEDS: ACCU-CHEK COMFORT CURVE STRIP VI SCH ×4 (06:17→21:44)
[2020-10-19] MEDS: InsuLIN REG 1unit/0.01ml Soln (100units/ml) SC SCH ×4 (06:18→22:00)
[2020-10-19] MEDS: MIDAZOLAM DRIP 50 mg/50mL 50 ML IV SCH (06:33)
[2020-10-19] MEDS ORDERED: SOD CHL 0.9%/ KCL 20MEQ 1,000 ML IV SCH (09:30)
[2020-10-19] MEDS ORDERED: POTASSIUM CHLORIDE 40 MEQ, LIDOCAINE 1% (LOCAL ANESTH.) 4 ML in SODIUM CHL 0.9% 250 ML IV ONE (09:30)
[2020-10-19] MEDS: NOREPINEPHRINE 8 MG/250ML KIT 250 ML IV SCH (09:45)
[2020-10-19] MEDS: PANTOPRAZOLE 40 MG/10 ML VIAL INJ IV SCH ×2 (09:51→21:44)
[2020-10-19] MEDS: APIXABAN 5 MG TAB PO SCH ×2 (09:51→21:44)
[2020-10-19] MEDS: AMIODARONE HCL 200 MG TAB PO SCH (09:51)
[2020-10-19] MEDS ORDERED: LIDOCAINE 2%HCL (LOCAL ANESTH.) INJ 20ML MDV ONE (12:27)
[2020-10-19] MEDS ORDERED: FLUMAZENIL 0.1 MG/ML INJ 10ML MDV IV ONE (12:27)
[2020-10-19] MEDS ORDERED: SODIUM CHLORIDE LOCK 0 ML ONE (12:27)
[2020-10-19] MEDS ORDERED: NALOXONE HCL 0.4 MG/ML VIAL ONE (12:27)
[2020-10-19] MEDS ORDERED: EPINEPHrine HCL 1 MG/1 ML AMP ONE (12:28)
[2020-10-19] MEDS ORDERED: LIDOCAINE HCL 2% TOP JELLY 5ML TOP ONE (12:28)
[2020-10-19] MEDS ORDERED: MIDAZOLAM HCL 5 MG/ML-1ML VIAL ONE (12:28)
[2020-10-19] MEDS ORDERED: GLYCOPYRROLATE 0.2 MG/ML 1ML VIAL ONE (12:28)
[2020-10-19] MEDS ORDERED: fentaNYL CITRATE 100 MCG/2 ML VL ONE (12:29)
[2020-10-19] MEDS: PROPOFOL 100 ML IV SCH ×2 (17:44→22:13)
[2020-10-19] MEDS: INSULIN LANTUS (GLARGINE) 1 /0.01ml (100units/ml) SC SCH (21:44)
[2020-10-19] MEDS: METOPROLOL TARTRATE 25 MG TAB PO SCH (22:15)
[2020-10-20] VITALS (85 sets, daily range): BP systolic 93–180; BP diastolic 50–113
[2020-10-20 05:23] LABS: Hematocrit 36.3 % (41.0-53.0); Hemoglobin 12.7 g/dL (13.5-17.5); Mean Corpuscular Hemoglobin 35.3 pg (28.0-32.0); Mean Corpuscular Hgb Conc. 34.8 g/dL (32.0-36.0); Mean Corpuscular Volume 101.4 fL (80.0-100.0); Platelet Count (auto) 215 10^3/uL (140-450); Red Blood Cells 3.58 10^6/uL (4.5-5.90); Red Cell Distribution Width 14.9 % (11.8-14.3); White Blood Cell 10.4 10^3/uL (4.4-10.8)
[2020-10-20 05:24] LABS: Potassium 3.3 mmol/L (3.5-5.1)
[2020-10-20 05:28] LABS: Basophils % (manual) 0 (0.0-2.0); Blast Cells 0; Metamyelocytes % 0; Myelocytes % 0; Promyelocytes % 0; Reactive Lymphocytes 0
[2020-10-20] MEDS: ALBUTEROL SULF 2.5 MG/0.5ML(0.5%) NEB SOLN NEB SCH ×6 (05:30→22:17)
[2020-10-20 05:35] LABS: Albumin 2.1 g/dL (3.4-5.0); BUN/Creatinine Ratio 25.8; Bilirubin, Total 0.6 mg/dL (0.2-1.0); Calcium 8.7 mg/dL (8.5-10.1); Total Protein 5.7 g/dL (6.4-8.2)
[2020-10-20] MEDS: IPRATROPIUM BROM 0.5 MG/2.5ML INH SOL NEB SCH ×5 (05:55→22:17)
[2020-10-20] MEDS: ACETYLCYSTEINE 10 %(100MG/ML) SOL 4ML NEB SCH ×6 (05:55→22:17)
[2020-10-20] MEDS: LEVOTHYROXINE SODIUM 25 MCG TAB PO SCH (06:02)
[2020-10-20] MEDS: PROPOFOL 100 ML IV SCH (06:02)
[2020-10-20] MEDS: MEROPENEM 1GM IVPB 100 ML IV SCH ×3 (06:02→22:07)
[2020-10-20] MEDS: InsuLIN REG 1unit/0.01ml Soln (100units/ml) SC SCH ×4 (06:02→22:08)
[2020-10-20] MEDS: ACCU-CHEK COMFORT CURVE STRIP VI SCH ×4 (06:04→22:08)
[2020-10-20 06:33] LABS: Band Neutrophils % (manual) 33; Eosinophils % (manual) 5 (0-7); Lymphocytes % (manual) 14 (10.0-50.0); Monocytes % (manual) 6 (0-12)
[2020-10-20] MEDS: MIDAZOLAM DRIP 50 mg/50mL 50 ML IV SCH (09:45)
[2020-10-20] MEDS: NOREPINEPHRINE 8 MG/250ML KIT 250 ML IV SCH (09:45)
[2020-10-20] MEDS: fentaNYL Drip 2500mCg/250mlNS 250 ML IV SCH (09:45)
[2020-10-20] MEDS: AMIODARONE HCL 200 MG TAB PO SCH (10:00)
[2020-10-20] MEDS: PANTOPRAZOLE 40 MG/10 ML VIAL INJ IV SCH ×2 (10:00→22:07)
[2020-10-20] MEDS: METOPROLOL TARTRATE 25 MG TAB PO SCH ×2 (10:50→22:07)
[2020-10-20] MEDS: APIXABAN 5 MG TAB PO SCH ×2 (10:50→22:07)
[2020-10-20] MEDS: cloNIDine HCL 0.1 MG TAB PO PRN ×2 (16:00→22:40)
[2020-10-20] MEDS: FREE WATER GT SCH (18:15)
[2020-10-20] MEDS: INSULIN LANTUS (GLARGINE) 1 /0.01ml (100units/ml) SC SCH (22:08)
[2020-10-20] MEDS: MORPHINE SULF INJ 2 MG/ML SYRINGE 1ML IV PRN (22:26)
[2020-10-21] VITALS (79 sets, daily range): BP systolic 102–169; BP diastolic 52–88
[2020-10-21] MEDS: ALBUTEROL SULF 2.5 MG/0.5ML(0.5%) NEB SOLN NEB SCH ×6 (02:27→22:19)
[2020-10-21] MEDS: ACETYLCYSTEINE 10 %(100MG/ML) SOL 4ML NEB SCH ×6 (02:27→22:19)
[2020-10-21] MEDS: IPRATROPIUM BROM 0.5 MG/2.5ML INH SOL NEB SCH ×6 (02:27→22:19)
[2020-10-21] MEDS: MEROPENEM 1GM IVPB 100 ML IV SCH ×3 (05:59→20:48)
[2020-10-21] MEDS: LEVOTHYROXINE SODIUM 25 MCG TAB PO SCH (06:00)
[2020-10-21] MEDS: MORPHINE SULF INJ 2 MG/ML SYRINGE 1ML IV PRN (06:00)
[2020-10-21] MEDS: FREE WATER GT SCH ×2 (06:00)
[2020-10-21] MEDS: ACCU-CHEK COMFORT CURVE STRIP VI SCH ×4 (06:00→20:49)
[2020-10-21] MEDS: InsuLIN REG 1unit/0.01ml Soln (100units/ml) SC SCH ×4 (06:01→22:00)
[2020-10-21 08:02] LABS: Eosinophils % (auto) 0.4 % (0.0-7.0); White Blood Cell 13.2 10^3/uL (4.4-10.8)
[2020-10-21 08:03] LABS: Basophils # (auto) 0 10 ^3/uL (0-0.2); Basophils % (auto) 0.3 % (0.0-2.0); Eosinophils # (auto) 0 10 ^3/uL (0-0.8); Hematocrit 32.9 % (41.0-53.0); Hemoglobin 11.5 g/dL (13.5-17.5); Lymphocytes # (auto) 0.8 10 ^3/uL (0.4-5.4); Lymphocytes % (auto) 5.8 % (10.0-50.0); Mean Corpuscular Hemoglobin 35.5 pg (28.0-32.0); Mean Corpuscular Hgb Conc. 35.1 g/dL (32.0-36.0); Monocytes # (auto) 0.9 10 ^3/uL (0-1.3); Monocytes % (auto) 6.8 % (0.0-12.0); Neutrophils # (auto) 11.5 10 ^3/uL (1.6-8.6); Neutrophils % (auto) 86.7 % (37.0-80.0); Platelet Count (auto) 194 10^3/uL (140-450); Red Blood Cells 3.25 10^6/uL (4.5-5.90); Red Cell Distribution Width 14.9 % (11.8-14.3)
[2020-10-21 08:19] LABS: Albumin 2.1 g/dL (3.4-5.0); Calcium 8.4 mg/dL (8.5-10.1)
[2020-10-21 08:22] LABS: BUN/Creatinine Ratio 22.1; Bilirubin, Total 0.8 mg/dL (0.2-1.0); Total Protein 5.6 g/dL (6.4-8.2)
[2020-10-21] MEDS: AMIODARONE HCL 200 MG TAB PO SCH (11:08)
[2020-10-21] MEDS: PANTOPRAZOLE 40 MG/10 ML VIAL INJ IV SCH ×2 (11:08→20:48)
[2020-10-21] MEDS: APIXABAN 5 MG TAB PO SCH ×2 (11:08→20:48)
[2020-10-21] MEDS: METOPROLOL TARTRATE 25 MG TAB PO SCH (11:09)
[2020-10-21] MEDS ORDERED: Glucerna 1.2 Cal 1Liter BOTTLE GT SCH (11:15)
[2020-10-21] MEDS ORDERED: D5W 5% 1,000 ML IV ONE (11:30)
[2020-10-21] MEDS ORDERED: POTASSIUM CHLORIDE 40 MEQ, LIDOCAINE 1% (LOCAL ANESTH.) 4 ML in SODIUM CHL 0.9% 250 ML IV ONE (11:30)
[2020-10-21] MEDS ORDERED: LORazepam 2MG/ML-1ML VIAL IV ONE (11:30)
[2020-10-21] MEDS ORDERED: FREE WATER GT SCH (14:00)
[2020-10-21] MEDS: METOPROLOL TARTRATE 25 MG TAB NG SCH (20:49)
[2020-10-21] MEDS: INSULIN LANTUS (GLARGINE) 1 /0.01ml (100units/ml) SC SCH (22:00)
[2020-10-21] MEDS: LORazepam 2MG/ML-1ML VIAL IV PRN (22:00)
[2020-10-22] VITALS (37 sets, daily range): BP systolic 111–177; BP diastolic 61–93
[2020-10-22] MEDS: IPRATROPIUM BROM 0.5 MG/2.5ML INH SOL NEB SCH ×4 (02:39→22:41)
[2020-10-22] MEDS: ACETYLCYSTEINE 10 %(100MG/ML) SOL 4ML NEB SCH ×4 (02:39→22:42)
[2020-10-22] MEDS: ALBUTEROL SULF 2.5 MG/0.5ML(0.5%) NEB SOLN NEB SCH ×4 (02:39→22:41)
[2020-10-22 05:17] LABS: Basophils # (auto) 0.1 10 ^3/uL (0-0.2); Basophils % (auto) 1.2 % (0.0-2.0); Eosinophils # (auto) 0.4 10 ^3/uL (0-0.8); Hemoglobin 11.9 g/dL (13.5-17.5); Lymphocytes % (auto) 15.1 % (10.0-50.0); Nucleated Red Blood Cells % 0.1 %; Platelet Count (auto) 180 10^3/uL (140-450)
[2020-10-22 05:21] LABS: Mean Corpuscular Hemoglobin 36.2 pg (28.0-32.0); Mean Corpuscular Hgb Conc. 35.9 g/dL (32.0-36.0); Mean Corpuscular Volume 100.7 fL (80.0-100.0); Monocytes # (auto) 0.9 10 ^3/uL (0-1.3); Monocytes % (auto) 13.6 % (0.0-12.0); Neutrophils # (auto) 4.4 10 ^3/uL (1.6-8.6); Neutrophils % (auto) 64.1 % (37.0-80.0); Red Blood Cells 3.28 10^6/uL (4.5-5.90); Red Cell Distribution Width 14.8 % (11.8-14.3); White Blood Cell 6.8 10^3/uL (4.4-10.8)
[2020-10-22 05:37] LABS: Calcium 8.1 mg/dL (8.5-10.1)
[2020-10-22 05:42] LABS: BUN/Creatinine Ratio 27.8; Bilirubin, Total 0.7 mg/dL (0.2-1.0); Total Protein 5.2 g/dL (6.4-8.2)
[2020-10-22 05:45] LABS: Potassium 2.8 mmol/L (3.5-5.1)
[2020-10-22] MEDS: MEROPENEM 1GM IVPB 100 ML IV SCH ×3 (06:00→22:00)
[2020-10-22] MEDS: LEVOTHYROXINE SODIUM 25 MCG TAB PO SCH (06:13)
[2020-10-22] MEDS: ACCU-CHEK COMFORT CURVE STRIP VI SCH ×4 (06:13→22:00)
[2020-10-22] MEDS: InsuLIN REG 1unit/0.01ml Soln (100units/ml) SC SCH ×4 (06:13→22:00)
[2020-10-22] MEDS ORDERED: POTASSIUM CHLORIDE 40 MEQ, LIDOCAINE 1% (LOCAL ANESTH.) 4 ML in SODIUM CHL 0.9% 250 ML IV ONE (07:30)
[2020-10-22] MEDS ORDERED: LORazepam 2MG/ML-1ML VIAL IV PRN (09:45)
[2020-10-22] MEDS: PANTOPRAZOLE 40 MG/10 ML VIAL INJ IV SCH ×2 (10:28→20:35)
[2020-10-22] MEDS: METOPROLOL TARTRATE 25 MG TAB NG SCH ×2 (10:29→20:36)
[2020-10-22] MEDS: APIXABAN 5 MG TAB PO SCH ×2 (10:29→20:36)
[2020-10-22] MEDS: AMIODARONE HCL 200 MG TAB PO SCH (10:29)
[2020-10-22] MEDS: metFORMIN HYDROCHLORIDE 500 MG TAB PO SCH (18:01)
[2020-10-22] MEDS: glipiZIDE 5 MG TAB PO SCH (18:01)
[2020-10-22] MEDS: TERAZOSIN HCL 1 MG CAP PO SCH (20:36)
[2020-10-22] MEDS: cloNIDine HCL 0.1 MG TAB PO PRN (20:38)
[2020-10-22] MEDS ORDERED: TERAZOSIN HCL 1 MG CAP PO SCH (22:00)
[2020-10-23] VITALS (22 sets, daily range): BP systolic 106–160; BP diastolic 57–91
[2020-10-23 05:40] LABS: Basophils # (auto) 0.1 10 ^3/uL (0-0.2); Eosinophils # (auto) 0.2 10 ^3/uL (0-0.8); Hemoglobin 12.4 g/dL (13.5-17.5); Red Blood Cells 3.54 10^6/uL (4.5-5.90); Red Cell Distribution Width 14.7 % (11.8-14.3)
[2020-10-23 05:43] LABS: Basophils % (auto) 0.9 % (0.0-2.0); Hematocrit 35.7 % (41.0-53.0); Lymphocytes # (auto) 1.3 10 ^3/uL (0.4-5.4); Lymphocytes % (auto) 22.1 % (10.0-50.0); Mean Corpuscular Hemoglobin 35.1 pg (28.0-32.0); Mean Corpuscular Hgb Conc. 34.7 g/dL (32.0-36.0); Monocytes % (auto) 16.9 % (0.0-12.0); Neutrophils # (auto) 3.4 10 ^3/uL (1.6-8.6); Neutrophils % (auto) 56.1 % (37.0-80.0); Nucleated Red Blood Cells % 0.3 %; Platelet Count (auto) 195 10^3/uL (140-450); White Blood Cell 6.1 10^3/uL (4.4-10.8)
[2020-10-23 05:58] LABS: Potassium 3.5 mmol/L (3.5-5.1)
[2020-10-23] MEDS: MEROPENEM 1GM IVPB 100 ML IV SCH ×3 (06:00→22:09)
[2020-10-23 06:11] LABS: Albumin 2.1 g/dL (3.4-5.0); Bilirubin, Total 0.6 mg/dL (0.2-1.0); Calcium 8.5 mg/dL (8.5-10.1); Total Protein 5.4 g/dL (6.4-8.2)
[2020-10-23] MEDS: IPRATROPIUM BROM 0.5 MG/2.5ML INH SOL NEB SCH ×3 (06:14→22:06)
[2020-10-23] MEDS: ALBUTEROL SULF 2.5 MG/0.5ML(0.5%) NEB SOLN NEB SCH ×3 (06:14→22:06)
[2020-10-23] MEDS: ACETYLCYSTEINE 10 %(100MG/ML) SOL 4ML NEB SCH ×3 (06:15→22:06)
[2020-10-23] MEDS: ACCU-CHEK COMFORT CURVE STRIP VI SCH ×4 (06:32→22:11)
[2020-10-23] MEDS: LEVOTHYROXINE SODIUM 25 MCG TAB PO SCH (06:32)
[2020-10-23] MEDS: glipiZIDE 5 MG TAB PO SCH ×2 (06:32→18:03)
[2020-10-23] MEDS: InsuLIN REG 1unit/0.01ml Soln (100units/ml) SC SCH ×4 (06:33→22:14)
[2020-10-23] MEDS: METOPROLOL TARTRATE 25 MG TAB NG SCH ×2 (08:36→22:10)
[2020-10-23] MEDS: metFORMIN HYDROCHLORIDE 500 MG TAB PO SCH ×2 (08:36→18:03)
[2020-10-23] MEDS: APIXABAN 5 MG TAB PO SCH ×2 (08:37→22:11)
[2020-10-23] MEDS: AMIODARONE HCL 200 MG TAB PO SCH (08:37)
[2020-10-23] MEDS: PANTOPRAZOLE 40 MG/10 ML VIAL INJ IV SCH ×2 (09:07→22:10)
[2020-10-23] MEDS: Glucerna Carbsteady SHAKE Vanilla 8oz PO SCH (18:03)
[2020-10-23] MEDS: TERAZOSIN HCL 1 MG CAP PO SCH (22:11)
[2020-10-23] MEDS: INSULIN LANTUS (GLARGINE) 1 /0.01ml (100units/ml) SC SCH (22:12)
[2020-10-24] VITALS (24 sets, daily range): BP systolic 102–160; BP diastolic 42–89
[2020-10-24] MEDS: MEROPENEM 1GM IVPB 100 ML IV SCH ×3 (06:10→21:23)
[2020-10-24] MEDS: LEVOTHYROXINE SODIUM 25 MCG TAB PO SCH (06:24)
[2020-10-24] MEDS: glipiZIDE 5 MG TAB PO SCH ×2 (06:24→20:00)
[2020-10-24] MEDS: ACCU-CHEK COMFORT CURVE STRIP VI SCH ×4 (06:24→21:54)
[2020-10-24] MEDS: InsuLIN REG 1unit/0.01ml Soln (100units/ml) SC SCH ×4 (06:25→21:53)
[2020-10-24] MEDS: IPRATROPIUM BROM 0.5 MG/2.5ML INH SOL NEB SCH ×3 (06:46→22:21)
[2020-10-24] MEDS: ALBUTEROL SULF 2.5 MG/0.5ML(0.5%) NEB SOLN NEB SCH ×3 (06:46→22:21)
[2020-10-24] MEDS: ACETYLCYSTEINE 10 %(100MG/ML) SOL 4ML NEB SCH ×3 (06:47→22:20)
[2020-10-24] MEDS: PANTOPRAZOLE 40 MG/10 ML VIAL INJ IV SCH ×2 (08:33→21:23)
[2020-10-24] MEDS: Glucerna Carbsteady SHAKE Vanilla 8oz PO SCH ×2 (08:34→18:00)
[2020-10-24] MEDS: metFORMIN HYDROCHLORIDE 500 MG TAB PO SCH ×2 (08:34→20:00)
[2020-10-24] MEDS: METOPROLOL TARTRATE 25 MG TAB NG SCH ×2 (08:35→21:24)
[2020-10-24] MEDS: AMIODARONE HCL 200 MG TAB PO SCH (08:35)
[2020-10-24] MEDS: APIXABAN 5 MG TAB PO SCH ×2 (08:35→21:24)
[2020-10-24] MEDS ORDERED: LORazepam 2MG/ML-1ML VIAL IV PRN (12:45)
[2020-10-24] MEDS: TERAZOSIN HCL 1 MG CAP PO SCH (21:31)
[2020-10-24] MEDS: INSULIN LANTUS (GLARGINE) 1 /0.01ml (100units/ml) SC SCH (21:54)
[2020-10-24] MEDS: LORazepam 2MG/ML-1ML VIAL IV PRN (22:42)
[2020-10-25] VITALS (23 sets, daily range): BP systolic 119–171; BP diastolic 70–122
[2020-10-25] MEDS: MEROPENEM 1GM IVPB 100 ML IV SCH ×3 (05:11→21:55)
[2020-10-25] MEDS: IPRATROPIUM BROM 0.5 MG/2.5ML INH SOL NEB SCH ×3 (06:08→19:16)
[2020-10-25] MEDS: ALBUTEROL SULF 2.5 MG/0.5ML(0.5%) NEB SOLN NEB SCH ×3 (06:08→19:16)
[2020-10-25] MEDS: glipiZIDE 5 MG TAB PO SCH ×2 (06:09→18:30)
[2020-10-25] MEDS: ACETYLCYSTEINE 10 %(100MG/ML) SOL 4ML NEB SCH ×3 (06:09→19:16)
[2020-10-25] MEDS: LEVOTHYROXINE SODIUM 25 MCG TAB PO SCH (06:10)
[2020-10-25] MEDS: ACCU-CHEK COMFORT CURVE STRIP VI SCH ×4 (06:10→21:59)
[2020-10-25] MEDS: InsuLIN REG 1unit/0.01ml Soln (100units/ml) SC SCH ×4 (06:13→21:58)
[2020-10-25 06:17] LABS: Basophils # (auto) 0.1 10 ^3/uL (0-0.2); Lymphocytes # (auto) 1.3 10 ^3/uL (0.4-5.4); Neutrophils # (auto) 5.9 10 ^3/uL (1.6-8.6); White Blood Cell 8.2 10^3/uL (4.4-10.8)
[2020-10-25 06:19] LABS: Basophils % (auto) 1.2 % (0.0-2.0); Eosinophils # (auto) 0.2 10 ^3/uL (0-0.8); Hematocrit 35.9 % (41.0-53.0); Hemoglobin 12.8 g/dL (13.5-17.5); Lymphocytes % (auto) 15.4 % (10.0-50.0); Mean Corpuscular Hemoglobin 36.2 pg (28.0-32.0); Mean Corpuscular Hgb Conc. 35.6 g/dL (32.0-36.0); Mean Corpuscular Volume 101.7 fL (80.0-100.0); Monocytes # (auto) 0.6 10 ^3/uL (0-1.3); Monocytes % (auto) 7.7 % (0.0-12.0); Neutrophils % (auto) 72.7 % (37.0-80.0); Nucleated Red Blood Cells % 0.1 %; Platelet Count (auto) 254 10^3/uL (140-450); Red Blood Cells 3.53 10^6/uL (4.5-5.90); Red Cell Distribution Width 14.8 % (11.8-14.3)
[2020-10-25 06:30] LABS: Albumin 2.3 g/dL (3.4-5.0); Calcium 8.3 mg/dL (8.5-10.1); Potassium 3.1 mmol/L (3.5-5.1)
[2020-10-25 06:33] LABS: BUN/Creatinine Ratio 13.8; Bilirubin, Total 0.6 mg/dL (0.2-1.0); Total Protein 5.5 g/dL (6.4-8.2)
[2020-10-25] MEDS ORDERED: POTASSIUM EFFERVESENT TAB 25 MEQ PO ONE (07:30)
[2020-10-25] MEDS: Glucerna Carbsteady SHAKE Vanilla 8oz PO SCH ×2 (08:11→18:07)
[2020-10-25] MEDS: metFORMIN HYDROCHLORIDE 500 MG TAB PO SCH ×2 (08:12→18:07)
[2020-10-25] MEDS: PANTOPRAZOLE 40 MG/10 ML VIAL INJ IV SCH ×2 (08:12→21:55)
[2020-10-25] MEDS: METOPROLOL TARTRATE 25 MG TAB NG SCH ×2 (08:13→21:56)
[2020-10-25] MEDS: APIXABAN 5 MG TAB PO SCH ×2 (08:13→21:56)
[2020-10-25] MEDS: AMIODARONE HCL 200 MG TAB PO SCH (08:13)
[2020-10-25] MEDS ORDERED: DOCUSATE SOD 100 MG CAP PO PRN (11:45)
[2020-10-25] MEDS: LORazepam 2MG/ML-1ML VIAL IV PRN ×2 (15:58→22:31)
[2020-10-25] MEDS: TERAZOSIN HCL 1 MG CAP PO SCH (21:56)
[2020-10-25] MEDS: INSULIN LANTUS (GLARGINE) 1 /0.01ml (100units/ml) SC SCH (21:58)
[2020-10-26] VITALS (16 sets, daily range): BP systolic 125–154; BP diastolic 60–95
[2020-10-26 05:55] LABS: Calcium 8.8 mg/dL (8.5-10.1); Magnesium 1.8 mg/dL (1.6-2.6); Potassium 3.5 mmol/L (3.5-5.1)
[2020-10-26] MEDS: MEROPENEM 1GM IVPB 100 ML IV SCH ×3 (06:00→21:52)
[2020-10-26] MEDS: ALBUTEROL SULF 2.5 MG/0.5ML(0.5%) NEB SOLN NEB SCH ×2 (06:27→19:04)
[2020-10-26] MEDS: IPRATROPIUM BROM 0.5 MG/2.5ML INH SOL NEB SCH ×3 (06:27→19:05)
[2020-10-26] MEDS: ACETYLCYSTEINE 10 %(100MG/ML) SOL 4ML NEB SCH ×3 (06:28→19:05)
[2020-10-26] MEDS: LEVOTHYROXINE SODIUM 25 MCG TAB PO SCH (06:40)
[2020-10-26] MEDS: glipiZIDE 5 MG TAB PO SCH ×2 (06:40→18:39)
[2020-10-26] MEDS: ACCU-CHEK COMFORT CURVE STRIP VI SCH ×4 (06:41→21:53)
[2020-10-26] MEDS: InsuLIN REG 1unit/0.01ml Soln (100units/ml) SC SCH ×4 (07:00→21:53)
[2020-10-26] MEDS: metFORMIN HYDROCHLORIDE 500 MG TAB PO SCH ×2 (09:01→18:38)
[2020-10-26] MEDS: Glucerna Carbsteady SHAKE Vanilla 8oz PO SCH ×2 (09:01→18:38)
[2020-10-26] MEDS: PANTOPRAZOLE 40 MG/10 ML VIAL INJ IV SCH (09:45)
[2020-10-26] MEDS: METOPROLOL TARTRATE 25 MG TAB NG SCH ×2 (09:46→21:52)
[2020-10-26] MEDS: APIXABAN 5 MG TAB PO SCH ×2 (09:46→21:52)
[2020-10-26] MEDS: AMIODARONE HCL 200 MG TAB PO SCH (09:47)
[2020-10-26] MEDS: PANTOPRAZOLE 40 MG TAB PO SCH ×2 (10:00→21:52)
[2020-10-26] MEDS ORDERED: FUROSEMIDE 20 MG/2 ML VIAL IV ONE (10:00)
[2020-10-26] MEDS ORDERED: ALBUTEROL SULF 2.5 MG/0.5ML(0.5%) NEB SOLN NEB SCH (10:00)
[2020-10-26] MEDS: TERAZOSIN HCL 1 MG CAP PO SCH (21:52)
[2020-10-26] MEDS: INSULIN LANTUS (GLARGINE) 1 /0.01ml (100units/ml) SC SCH (21:53)
[2020-10-26] MEDS: LORazepam 2MG/ML-1ML VIAL IV PRN (22:57)
[2020-10-27] VITALS (14 sets, daily range): BP systolic 111–147; BP diastolic 60–91
[2020-10-27 05:47] LABS: Basophils # (auto) 0.1 10 ^3/uL (0-0.2); Eosinophils # (auto) 0.3 10 ^3/uL (0-0.8); Lymphocytes # (auto) 1.5 10 ^3/uL (0.4-5.4); Monocytes # (auto) 1.1 10 ^3/uL (0-1.3); Nucleated Red Blood Cells % 0.1 %; Red Cell Distribution Width 14.8 % (11.8-14.3)
[2020-10-27 05:49] LABS: Basophils % (auto) 0.7 % (0.0-2.0); Eosinophils % (auto) 2.3 % (0.0-7.0); Hematocrit 41.5 % (41.0-53.0); Hemoglobin 14.5 g/dL (13.5-17.5); Lymphocytes % (auto) 11.5 % (10.0-50.0); Mean Corpuscular Hemoglobin 35.4 pg (28.0-32.0); Mean Corpuscular Hgb Conc. 34.8 g/dL (32.0-36.0); Mean Corpuscular Volume 101.6 fL (80.0-100.0); Monocytes % (auto) 8.3 % (0.0-12.0); Neutrophils # (auto) 10.1 10 ^3/uL (1.6-8.6); Neutrophils % (auto) 77.2 % (37.0-80.0); Platelet Count (auto) 393 10^3/uL (140-450); Red Blood Cells 4.09 10^6/uL (4.5-5.90); White Blood Cell 13.1 10^3/uL (4.4-10.8)
[2020-10-27 06:06] LABS: Potassium 3.5 mmol/L (3.5-5.1)
[2020-10-27] MEDS: MEROPENEM 1GM IVPB 100 ML IV SCH ×2 (06:07→15:00)
[2020-10-27] MEDS: InsuLIN REG 1unit/0.01ml Soln (100units/ml) SC SCH ×4 (06:08→21:47)
[2020-10-27] MEDS: ACCU-CHEK COMFORT CURVE STRIP VI SCH ×4 (06:08→21:23)
[2020-10-27 06:18] LABS: Albumin 2.9 g/dL (3.4-5.0); BUN/Creatinine Ratio 15.3; Calcium 9.2 mg/dL (8.5-10.1); Total Protein 6.9 g/dL (6.4-8.2)
[2020-10-27] MEDS: IPRATROPIUM BROM 0.5 MG/2.5ML INH SOL NEB SCH ×2 (06:54→22:09)
[2020-10-27] MEDS: ALBUTEROL SULF 2.5 MG/0.5ML(0.5%) NEB SOLN NEB SCH ×2 (06:54→22:10)
[2020-10-27] MEDS: ACETYLCYSTEINE 10 %(100MG/ML) SOL 4ML NEB SCH (06:55)
[2020-10-27] MEDS: glipiZIDE 5 MG TAB PO SCH (07:00)
[2020-10-27] MEDS: metFORMIN HYDROCHLORIDE 500 MG TAB PO SCH ×2 (08:00→18:02)
[2020-10-27] MEDS: Glucerna Carbsteady SHAKE Vanilla 8oz PO SCH ×2 (08:00→18:02)
[2020-10-27] MEDS: LEVOTHYROXINE SODIUM 25 MCG TAB PO SCH (09:00)
[2020-10-27] MEDS: AMIODARONE HCL 200 MG TAB PO SCH (10:07)
[2020-10-27] MEDS: METOPROLOL TARTRATE 25 MG TAB NG SCH ×2 (10:07→21:22)
[2020-10-27] MEDS: PANTOPRAZOLE 40 MG TAB PO SCH ×2 (10:07→21:22)
[2020-10-27] MEDS: APIXABAN 5 MG TAB PO SCH ×2 (10:07→21:21)
[2020-10-27] MEDS ORDERED: POTASSIUM EFFERVESENT TAB 25 MEQ GT ONE (10:45)
[2020-10-27] MEDS: LORazepam 2MG/ML-1ML VIAL IV PRN (11:18)
[2020-10-27] MEDS: TERAZOSIN HCL 1 MG CAP PO SCH (21:23)
[2020-10-27] MEDS: INSULIN LANTUS (GLARGINE) 1 /0.01ml (100units/ml) SC SCH (21:48)
[2020-10-28 05:00] VITALS: BP 118/61
[2020-10-28] MEDS: LEVOTHYROXINE SODIUM 25 MCG TAB PO SCH (05:52)
[2020-10-28] MEDS: InsuLIN REG 1unit/0.01ml Soln (100units/ml) SC SCH ×4 (05:53→23:38)
[2020-10-28] MEDS: ACCU-CHEK COMFORT CURVE STRIP VI SCH ×5 (05:53→22:58)
[2020-10-28] MEDS: IPRATROPIUM BROM 0.5 MG/2.5ML INH SOL NEB SCH ×3 (06:43→23:19)
[2020-10-28] MEDS: ALBUTEROL SULF 2.5 MG/0.5ML(0.5%) NEB SOLN NEB SCH ×3 (06:43→23:19)
[2020-10-28] MEDS: Glucerna Carbsteady SHAKE Vanilla 8oz PO SCH ×2 (08:30→18:05)
[2020-10-28 09:00] VITALS: BP 111/69
[2020-10-28] MEDS: metFORMIN HYDROCHLORIDE 500 MG TAB PO SCH ×2 (09:30→18:26)
[2020-10-28] MEDS: METOPROLOL TARTRATE 25 MG TAB NG SCH ×2 (09:50→22:57)
[2020-10-28] MEDS: APIXABAN 5 MG TAB PO SCH ×2 (09:51→22:57)
[2020-10-28] MEDS: AMIODARONE HCL 200 MG TAB PO SCH (09:51)
[2020-10-28] MEDS: PANTOPRAZOLE 40 MG TAB PO SCH ×2 (09:51→22:58)
[2020-10-28 10:11] LABS: Basophils # (auto) 0.1 10 ^3/uL (0-0.2); Hemoglobin 11.8 g/dL (13.5-17.5); Monocytes # (auto) 0.8 10 ^3/uL (0-1.3); Neutrophils # (auto) 4.9 10 ^3/uL (1.6-8.6); Nucleated Red Blood Cells % 0.1 %
[2020-10-28 10:17] LABS: Basophils % (auto) 1.2 % (0.0-2.0); Eosinophils # (auto) 0.4 10 ^3/uL (0-0.8); Eosinophils % (auto) 5.2 % (0.0-7.0); Hematocrit 33.4 % (41.0-53.0); Lymphocytes # (auto) 1.2 10 ^3/uL (0.4-5.4); Lymphocytes % (auto) 15.7 % (10.0-50.0); Mean Corpuscular Hemoglobin 35.7 pg (28.0-32.0); Mean Corpuscular Hgb Conc. 35.2 g/dL (32.0-36.0); Mean Corpuscular Volume 101.3 fL (80.0-100.0); Monocytes % (auto) 10.9 % (0.0-12.0); Platelet Count (auto) 329 10^3/uL (140-450); Red Blood Cells 3.29 10^6/uL (4.5-5.90); Red Cell Distribution Width 14.8 % (11.8-14.3); White Blood Cell 7.4 10^3/uL (4.4-10.8)
[2020-10-28 12:00] VITALS: BP 122/70
[2020-10-28 16:00] VITALS: BP 141/78
[2020-10-28 22:00] VITALS: BP 133/77
[2020-10-28] MEDS: TERAZOSIN HCL 1 MG CAP PO SCH (22:58)
[2020-10-28] MEDS: INSULIN LANTUS (GLARGINE) 1 /0.01ml (100units/ml) SC SCH (23:39)
[2020-10-29 05:00] VITALS: BP 124/77
[2020-10-29] MEDS: LORazepam 2MG/ML-1ML VIAL IV PRN (06:18)
[2020-10-29] MEDS: ACCU-CHEK COMFORT CURVE STRIP VI SCH ×2 (06:19→12:00)
[2020-10-29] MEDS: LEVOTHYROXINE SODIUM 25 MCG TAB PO SCH (06:19)
[2020-10-29] MEDS: InsuLIN REG 1unit/0.01ml Soln (100units/ml) SC SCH ×2 (06:19→12:00)
[2020-10-29] MEDS: Glucerna Carbsteady SHAKE Vanilla 8oz PO SCH (08:00)
[2020-10-29] MEDS: ALBUTEROL SULF 2.5 MG/0.5ML(0.5%) NEB SOLN NEB SCH ×2 (08:44→15:13)
[2020-10-29] MEDS: IPRATROPIUM BROM 0.5 MG/2.5ML INH SOL NEB SCH ×2 (08:44→15:13)
[2020-10-29 09:00] VITALS: BP 118/72
[2020-10-29] MEDS: metFORMIN HYDROCHLORIDE 500 MG TAB PO SCH (10:39)
[2020-10-29] MEDS: METOPROLOL TARTRATE 25 MG TAB NG SCH (10:39)
[2020-10-29] MEDS: APIXABAN 5 MG TAB PO SCH (10:40)
[2020-10-29] MEDS: PANTOPRAZOLE 40 MG TAB PO SCH (10:40)
[2020-10-29] MEDS: AMIODARONE HCL 200 MG TAB PO SCH (10:40)
[2020-10-29 13:00] VITALS: BP 107/66
== END 2020-10-29 17:22 | DRG 207 ==
LOC: EDBD 08:16 → ER 08:16 → TELE 08:17 → ICU WEST 10-10 20:54 → TELE-EAST 10-13 22:19 → ICU WEST 10-15 10:36 → DOU IN ICU 10-21 15:37 → TELE-WESTW 10-27 11:45
PROVIDERS: ADMIT Family Medicine; ATTEND Internal Medicine
PROC: 02HV33Z Insertion of Infusion Device into Superior Vena Cava, Percutaneous Approach (ICD-10-PCS; principal; 2020-10-08)
PROC: 0BH17EZ Insertion of Endotracheal Airway into Trachea, Via Natural or Artificial Opening (ICD-10-PCS; 2020-10-08)
PROC: 5A1945Z Respiratory Ventilation, 24-96 Consecutive Hours (ICD-10-PCS; 2020-10-08)
PROC: 30233K1 Transfusion of Nonautologous Frozen Plasma into Peripheral Vein, Percutaneous Approach (ICD-10-PCS; 2020-10-09)
PROC: B218YZZ Fluoroscopy of Left Internal Mammary Bypass Graft using Other Contrast (ICD-10-PCS; 2020-10-13)
PROC: 4A023N7 Measurement of Cardiac Sampling and Pressure, Left Heart, Percutaneous Approach (ICD-10-PCS; 2020-10-13)
PROC: B211YZZ Fluoroscopy of Multiple Coronary Arteries using Other Contrast (ICD-10-PCS; 2020-10-13)
PROC: B215YZZ Fluoroscopy of Left Heart using Other Contrast (ICD-10-PCS; 2020-10-13)
PROC: 5A1955Z Respiratory Ventilation, Greater than 96 Consecutive Hours (ICD-10-PCS; 2020-10-15)
PROC: 0BH17EZ Insertion of Endotracheal Airway into Trachea, Via Natural or Artificial Opening (ICD-10-PCS; 2020-10-15)
PROC: 0B9D8ZX Drainage of Right Middle Lung Lobe, Via Natural or Artificial Opening Endoscopic, Diagnostic (ICD-10-PCS; 2020-10-19)
DX: J96.01 Acute respiratory failure with hypoxia (principal); E11.11 Type 2 diabetes mellitus with ketoacidosis with coma; A41.59 Other Gram-negative sepsis; G93.41 Metabolic encephalopathy; I63.9 Cerebral infarction, unspecified; I21.A1 Myocardial infarction type 2; E43 Unspecified severe protein-calorie malnutrition; R65.21 Severe sepsis with septic shock; N17.0 Acute kidney failure with tubular necrosis; J69.0 Pneumonitis due to inhalation of food and vomit; K92.0 Hematemesis; I47.1 Supraventricular tachycardia; I48.92 Unspecified atrial flutter; E87.0 Hyperosmolality and hypernatremia; E87.1 Hypo-osmolality and hyponatremia; D68.69 Other thrombophilia; J98.11 Atelectasis; D68.32 Hemorrhagic disorder due to extrinsic circulating anticoagulants; I25.10 Atherosclerotic heart disease of native coronary artery without angina pectoris; I48.0 Paroxysmal atrial fibrillation; I95.9 Hypotension, unspecified; E11.21 Type 2 diabetes mellitus with diabetic nephropathy; E87.6 Hypokalemia; B96.20 Unspecified Escherichia coli [E. coli] as the cause of diseases classified elsewhere; E03.9 Hypothyroidism, unspecified; F01.50 Vascular dementia, unspecified severity, without behavioral disturbance, psychotic disturbance, mood disturbance, and anxiety; I16.0 Hypertensive urgency; N40.0 Benign prostatic hyperplasia without lower urinary tract symptoms; T45.515A Adverse effect of anticoagulants, initial encounter; Z20.822 Contact with and (suspected) exposure to COVID-19; Z86.73 Personal history of transient ischemic attack (TIA), and cerebral infarction without residual deficits; Z95.3 Presence of xenogenic heart valve; Z79.899 Other long term (current) drug therapy; Z79.01 Long term (current) use of anticoagulants; Z79.84 Long term (current) use of oral hypoglycemic drugs; I10 Essential (primary) hypertension; F17.200 Nicotine dependence, unspecified, uncomplicated; M10.9 Gout, unspecified
CPT/HCPCS: 36415; 36600; 70450; 71045; 74176; 80048; 80053; 80061; 80202; 80307; 81001; 82010; 82607; 82746; 82805; 82962; 83036; 83605; 83735; 83880; 83930; 84100; 84132; 84443; 84450; 84460; 84484; 85007; 85014; 85018; 85025; 85027; 85610; 85730; 86850; 86900; 86901; 87040; 87070; 87077; 87081; 87086; 87186; 87205; 87426; 92610; 93005; 93306; 93886; 94002; 94003; 94640; 95819; 97110; 97116; 97163; 97530; 99152; 99153; 99291; A4618; C9113; G0378; J0171; J0330; J1815; J2001; J2185; J2250; J2543; J2704; J3480; J7060; P9047; Q9967

== ENCOUNTER 2021-01-09 22:15 | Emergency (ER) | payer OTHER ==
[~2021-01-09] VITALS: Ht 175.3 cm; Wt 95.3 kg
[2021-01-10 00:30] VITALS: BP 152/78
== END 2021-01-10 01:09 | disposition home or self-care (01) ==
LOC: ER 22:16
DX: T38.3X1A Poisoning by insulin and oral hypoglycemic [antidiabetic] drugs, accidental (unintentional), initial encounter (principal); E09.9 Drug or chemical induced diabetes mellitus without complications; Y92.9 Unspecified place or not applicable
CPT/HCPCS: 82962

== ENCOUNTER 2022-07-10 07:23 | Inpatient (IN) | payer OTHER ==
[~2022-07-10] VITALS: Ht 182.9 cm; Wt 86.0 kg
[2022-07-10] MEDS ORDERED: ACCU-CHEK COMFORT CURVE STRIP VI ONE (07:45)
[2022-07-10 08:08] LABS: Urine Bacteria FEW /hpf (None Seen); Urine Blood Negative /uL (Negative); Urine Hyaline Cast MOD /lpf (0 - 2); Urine Specific Gravity 1.016 (1.001-1.035); Urine WBC 2 /hpf (0 - 3)
[2022-07-10 08:22] LABS: Alcohol, Urine < 3.0 mg/dL (0-10); Amphetamine Screen, Urine NEGATIVE (NEGATIVE); Barbiturate Scree,Urine NEGATIVE (NEGATIVE); Benzodiazephine Screen, Urine NEGATIVE (NEGATIVE); Cocaine Screen, Urine NEGATIVE (NEGATIVE); Opiate Scree,Urine NEGATIVE (NEGATIVE); Phencyclidine Screen, Urine NEGATIVE (NEGATIVE)
[2022-07-10 08:26] LABS: Mean Corpuscular Volume 108.7 fL (80.0-100.0)
[2022-07-10 08:27] LABS: Hematocrit 54.6 % (41.0-53.0); Hemoglobin 16.9 g/dL (13.5-17.5); Mean Corpuscular Hemoglobin 33.5 pg (28.0-32.0); Mean Corpuscular Hgb Conc. 30.9 g/dL (32.0-36.0); Red Blood Cells 5.02 10^6/uL (4.5-5.90); White Blood Cell 21.5 10^3/uL (4.4-10.8)
[2022-07-10 08:30] LABS: Basophils % (manual) 0 (0.0-2.0); Blast Cells 0; Eosinophils % (manual) 0 (0-7); Metamyelocytes % 0; Myelocytes % 0; Promyelocytes % 0; Reactive Lymphocytes 0
[2022-07-10 08:30] LABS: Cannabinoid Screen, Urine POSITIVE (NEGATIVE)
[2022-07-10 08:48] LABS: Albumin 3.9 g/dL (3.4-5.0); Calcium 9.6 mg/dL (8.5-10.1); Potassium 3.8 mmol/L (3.5-5.1)
[2022-07-10 08:51] LABS: Band Neutrophils % (manual) 10; Lymphocytes % (manual) 6 (10.0-50.0); Monocytes % (manual) 4 (0-12)
[2022-07-10 08:57] LABS: BUN/Creatinine Ratio 13.7; Bilirubin, Total 0.7 mg/dL (0.2-1.0); Total Protein 7.7 g/dL (6.4-8.2)
[2022-07-10 09:01] LABS: Lactic Acid w/Reflex 7.9 mmol/L (0.4-2.0)
[2022-07-10] MEDS ORDERED: SODIUM CHLORIDE 0.9% 3,000 ML IV ONE (09:15)
[2022-07-10] MEDS ORDERED: PROCHLORPERAZINE EDISYLATE 5 MG/ML 2ML VIAL IV ONE (12:15)
[2022-07-10] MEDS ORDERED: InsuLIN R (HUMAN) 100 UNITS in SODIUM CHL 0.9% 99 ML IV SCH (14:00)
[2022-07-10] MEDS ORDERED: DEXTROSE (50%) 50ML SYRG IV PRN (14:00)
[2022-07-10] MEDS ORDERED: InsuLIN REG 1unit/0.01ml Soln (100units/ml) IV ONE (14:00)
[2022-07-10 14:59] LABS: Magnesium 2.1 mg/dL (1.6-2.6); Phosphorus 5.7 mg/dL (2.5-4.90)
[2022-07-10 15:00] LABS: Calcium 8.5 mg/dL (8.5-10.1); Potassium 4.2 mmol/L (3.5-5.1)
[2022-07-10 15:09] LABS: BUN/Creatinine Ratio 16.3
[2022-07-10] MEDS: ACCU-CHEK COMFORT CURVE STRIP VI SCH ×6 (15:17→22:27)
[2022-07-10] MEDS ORDERED: METOCLOPRAMIDE HCL 5MG/ml INJ 2ml VIAL IV PRN ×2 (17:00→18:00)
[2022-07-10] MEDS ORDERED: HYDROcodone-ACET 5/325MG TAB PO PRN (17:00)
[2022-07-10] MEDS ORDERED: DOCUSATE SOD 100 MG CAP PO PRN (17:00)
[2022-07-10] MEDS ORDERED: MORPHINE SULFATE INJ 2 MG/ml SYRG IV PRN (17:00)
[2022-07-10] MEDS ORDERED: NITROGLYCERIN 0.4 MG SL TAB SL PRN (17:00)
[2022-07-10] MEDS ORDERED: ONDANSETRON HCL 4 MG/2 ML VIAL IV PRN ×2 (17:00→18:00)
[2022-07-10] MEDS ORDERED: LISI-716 PO (17:00)
[2022-07-10 17:03] LABS: Calcium 8.4 mg/dL (8.5-10.1); Potassium 3.7 mmol/L (3.5-5.1)
[2022-07-10 17:06] LABS: BUN/Creatinine Ratio 16.3
[2022-07-10] MEDS: SODIUM CHLORIDE 0.9% 1,000 ML IV SCH (17:36)
[2022-07-10] MEDS ORDERED: INSULIN LANTUS (GLARGINE) 1 /0.01ml (100units/ml) SC SCH (22:00)
[2022-07-10] MEDS ORDERED: LISINOPRIL 10 MG TAB PO SCH (22:00)
[2022-07-10] MEDS: LISINOPRIL 10 MG TAB PO SCH (22:00)
[2022-07-10 22:47] LABS: Basophils # (auto) 0 10 ^3/uL (0-0.2); Basophils % (auto) 0.2 % (0.0-2.0); Eosinophils # (auto) 0 10 ^3/uL (0-0.8); Hematocrit 42.1 % (41.0-53.0); Hemoglobin 14.5 g/dL (13.5-17.5); Lymphocytes # (auto) 0.9 10 ^3/uL (0.4-5.4); Lymphocytes % (auto) 5.2 % (10.0-50.0); Mean Corpuscular Hemoglobin 34.3 pg (28.0-32.0); Mean Corpuscular Hgb Conc. 34.3 g/dL (32.0-36.0); Mean Corpuscular Volume 99.8 fL (80.0-100.0); Monocytes # (auto) 2.9 10 ^3/uL (0-1.3); Monocytes % (auto) 17.2 % (0.0-12.0); Neutrophils % (auto) 77.4 % (37.0-80.0); Red Blood Cells 4.22 10^6/uL (4.5-5.90); Red Cell Distribution Width 13.7 % (11.8-14.3); White Blood Cell 16.8 10^3/uL (4.4-10.8)
[2022-07-11] MEDS: ACCU-CHEK COMFORT CURVE STRIP VI SCH ×10 (00:06→23:23)
[2022-07-11] MEDS: SODIUM CHLORIDE 0.9% 1,000 ML IV SCH ×2 (01:27→09:40)
[2022-07-11 03:12] LABS: BUN/Creatinine Ratio 20.6; Calcium 8.3 mg/dL (8.5-10.1); Potassium 3.2 mmol/L (3.5-5.1)
[2022-07-11] MEDS ORDERED: DEXTROSE (50%) 50ML SYRG IV PRN ×2 (06:15→06:45)
[2022-07-11] MEDS ORDERED: InsuLIN R (HUMAN) 100 UNITS in SODIUM CHL 0.9% 99 ML IV SCH (06:15)
[2022-07-11 06:45] LABS: Basophils # (auto) 0 10 ^3/uL (0-0.2); Basophils % (auto) 0.1 % (0.0-2.0); Eosinophils # (auto) 0 10 ^3/uL (0-0.8); Eosinophils % (auto) 0.1 % (0.0-7.0); Hemoglobin 14.4 g/dL (13.5-17.5); Monocytes # (auto) 1.8 10 ^3/uL (0-1.3); Neutrophils # (auto) 9.8 10 ^3/uL (1.6-8.6); White Blood Cell 12.4 10^3/uL (4.4-10.8)
[2022-07-11 06:49] LABS: Hematocrit 40.6 % (41.0-53.0); Lymphocytes # (auto) 0.8 10 ^3/uL (0.4-5.4); Lymphocytes % (auto) 6.2 % (10.0-50.0); Mean Corpuscular Hemoglobin 34.8 pg (28.0-32.0); Mean Corpuscular Hgb Conc. 35.5 g/dL (32.0-36.0); Mean Corpuscular Volume 98.1 fL (80.0-100.0); Monocytes % (auto) 14.3 % (0.0-12.0); Neutrophils % (auto) 79.3 % (37.0-80.0); Red Blood Cells 4.14 10^6/uL (4.5-5.90); Red Cell Distribution Width 13.7 % (11.8-14.3)
[2022-07-11 07:03] LABS: Potassium 3.1 mmol/L (3.5-5.1)
[2022-07-11 07:07] LABS: BUN/Creatinine Ratio 22.8; Calcium 8.4 mg/dL (8.5-10.1)
[2022-07-11] MEDS ORDERED: ACCU-CHEK COMFORT CURVE STRIP VI SCH (07:30)
[2022-07-11] MEDS: InsuLIN REG 1unit/0.01ml Soln (100units/ml) SC SCH ×5 (07:49→23:22)
[2022-07-11] MEDS ORDERED: LORazepam 2MG/ML-1ML VIAL IV PRN (09:15)
[2022-07-11] MEDS: LISINOPRIL 10 MG TAB PO SCH (09:40)
[2022-07-11] MEDS: DABIGATRAN 75 MG CAP PO SCH ×2 (09:52→21:09)
[2022-07-11 09:56] LABS: Cholesterol 155 mg/dL (< 200); HDL Cholesterol 70 mg/dL (40-59); LDL Cholesterol 78 mg/dL (< 100); Triglycerides 66 mg/dL (< 150)
[2022-07-11] MEDS ORDERED: PANTOPRAZOLE 40 MG/10 ML VIAL INJ IV SCH (10:00)
[2022-07-11] MEDS ORDERED: FOLIC ACID 1 MG, MULTIPLE VITAMIN 10 ML, MAGNESIUM SULF SDV 50% 8 MEQ, THIAMINE INJ 100... INJ SCH ×5 (12:00)
[2022-07-11] MEDS ORDERED: AMIODARONE HCL 200 MG TAB PO ONE (14:45)
[2022-07-11] MEDS ORDERED: SODIUM CHLORIDE 0.9% 1,000 ML IV SCH (14:45)
[2022-07-11] MEDS ORDERED: ALLOPURINOL 100 MG TAB PO ONE (14:45)
[2022-07-11] MEDS ORDERED: THIAMINE HCL 100 MG TAB PO ONE (14:45)
[2022-07-11] MEDS ORDERED: LEVOTHYROXINE SODIUM 50 MCG TAB PO ONE (14:45)
[2022-07-11] MEDS ORDERED: POTASSIUM EFFERVESENT TAB 25 MEQ PO ONE (15:00)
[2022-07-11] MEDS: INSULIN LANTUS (GLARGINE) 1 /0.01ml (100units/ml) SC SCH ×2 (15:41→23:21)
[2022-07-11] MEDS ORDERED: TAMSULOSIN HYDROCHLORIDE 0.4 MG CAP PO SCH (18:00)
[2022-07-11 20:00] VITALS: BP 152/79
[2022-07-11] MEDS ORDERED: guaiFENesin-DM 100/10mg/5ml SYR PO PRN (21:00)
[2022-07-11 22:00] VITALS: BP 142/78
[2022-07-11] MEDS ORDERED: PANTOPRAZOLE 40 MG TAB PO SCH (22:00)
[2022-07-11] MEDS ORDERED: METOPROLOL TARTRATE 50 MG TAB PO SCH (22:00)
[2022-07-12] MEDS ORDERED: LEVOTHYROXINE SODIUM 50 MCG TAB PO SCH (07:00)
[2022-07-12] MEDS ORDERED: THIAMINE HCL 100 MG TAB PO SCH (10:00)
[2022-07-12] MEDS ORDERED: DULoxetine HCL 30 MG CAP PO SCH (10:00)
[2022-07-12] MEDS ORDERED: AMIODARONE HCL 200 MG TAB PO SCH (10:00)
[2022-07-12] MEDS ORDERED: ALLOPURINOL 100 MG TAB PO SCH (10:00)
== END 2022-07-12 01:30 | disposition short-term general hospital (02) | DRG 871 ==
LOC: EDBD 07:23 → EDUNIT# 07:23 → ER 07:23 → TELE 16:57 → TELE-EAST 07-11 18:41
PROVIDERS: ADMIT Nurse Practitioner Family; ATTEND Student in an Organized Health Care Education/Training Program
DX: A41.9 Sepsis, unspecified organism (principal); E11.10 Type 2 diabetes mellitus with ketoacidosis without coma; G93.41 Metabolic encephalopathy; I63.81 Other cerebral infarction due to occlusion or stenosis of small artery; I13.0 Hypertensive heart and chronic kidney disease with heart failure and stage 1 through stage 4 chronic kidney disease, or unspecified chronic kidney disease; I25.810 Atherosclerosis of coronary artery bypass graft(s) without angina pectoris; K92.2 Gastrointestinal hemorrhage, unspecified; I48.91 Unspecified atrial fibrillation; D75.89 Other specified diseases of blood and blood-forming organs; E11.22 Type 2 diabetes mellitus with diabetic chronic kidney disease; M10.9 Gout, unspecified; Z20.822 Contact with and (suspected) exposure to COVID-19; F29 Unspecified psychosis not due to a substance or known physiological condition; I50.9 Heart failure, unspecified; N18.9 Chronic kidney disease, unspecified; I69.318 Other symptoms and signs involving cognitive functions following cerebral infarction; Z79.01 Long term (current) use of anticoagulants; Z79.899 Other long term (current) drug therapy; Z95.2 Presence of prosthetic heart valve
CPT/HCPCS: 36415; 36600; 70450; 71045; 80048; 80053; 80061; 80307; 81001; 82010; 82805; 82962; 83605; 83690; 83735; 83880; 83930; 84100; 84484; 85007; 85025; 85027; 87040; 87426; 93005; 95819; 96361; 96374; 96375; 99291; C9113; G0378; J1815

== ENCOUNTER 2023-02-28 18:45 | Emergency (ER) | payer OTHER ==
[~2023-02-28] VITALS: Ht 175.3 cm; Wt 100.0 kg
[~2023-02-28 18:45] MED LIST: LISI10TA34 PO
[2023-02-28] MEDS ORDERED: SODIUM CHLORIDE 0.9% 1,000 ML IV ONE (19:45)
[2023-02-28 20:25] LABS: Albumin 3.3 g/dL (3.4-5.0); Calcium 8.5 mg/dL (8.5-10.1); Magnesium 2.2 mg/dL (1.6-2.6); Potassium 3.9 mmol/L (3.5-5.1)
[2023-02-28 20:26] LABS: INR 1.05 (0.9-1.15)
[2023-02-28 20:28] LABS: BUN/Creatinine Ratio 14.7 (10.0-20.0); Bilirubin, Total 0.5 mg/dL (0.2-1.0); Total Protein 6.9 g/dL (6.4-8.2)
[2023-02-28 21:13] LABS: Basophils # (auto) 0.1 10 ^3/uL (0-0.2); Basophils % (auto) 0.8 % (0.0-2.0); Eosinophils # (auto) 0.5 10 ^3/uL (0-0.8); Eosinophils % (auto) 4.4 % (0.0-7.0); Hematocrit 40.4 % (41.0-53.0); Hemoglobin 13.7 g/dL (13.5-17.5); Lymphocytes # (auto) 1.1 10 ^3/uL (0.4-5.4); Lymphocytes % (auto) 10.3 % (10.0-50.0); Mean Corpuscular Hemoglobin 32.7 pg (28.0-32.0); Mean Corpuscular Volume 96.2 fL (80.0-100.0); Neutrophils # (auto) 7.6 10 ^3/uL (1.6-8.6); Neutrophils % (auto) 74.5 % (37.0-80.0); Nucleated Red Blood Cells % 0.2 %; Red Cell Distribution Width 13.9 % (11.8-14.3); White Blood Cell 10.2 10^3/uL (4.4-10.8)
[2023-02-28 23:15] VITALS: BP 126/73
[2023-02-28 23:47] LABS: Urine Bacteria NONE SEEN /hpf (None Seen); Urine Blood Negative /uL (Negative); Urine Specific Gravity 1.018 (1.001-1.035); Urine WBC <1 /hpf (0 - 3)
[2023-03-01 00:25] LABS: Amphetamine Screen, Urine NEGATIVE (NEGATIVE); Barbiturate Scree,Urine NEGATIVE (NEGATIVE); Benzodiazephine Screen, Urine NEGATIVE (NEGATIVE); Cannabinoid Screen, Urine POSITIVE (NEGATIVE)
[2023-03-01 17:31] LABS: Cocaine Screen, Urine NEGATIVE (NEGATIVE); Opiate Scree,Urine NEGATIVE (NEGATIVE)
[2023-03-01 18:35] LABS: Phencyclidine Screen, Urine NEGATIVE (NEGATIVE)
== END 2023-02-28 23:33 | disposition short-term general hospital (02) ==
LOC: EDBD 18:45 → ER 18:45
DX: S06.300A Unspecified focal traumatic brain injury without loss of consciousness, initial encounter (principal); S42.401A Unspecified fracture of lower end of right humerus, initial encounter for closed fracture; R55 Syncope and collapse; F10.129 Alcohol abuse with intoxication, unspecified; E11.9 Type 2 diabetes mellitus without complications; I10 Essential (primary) hypertension; K21.9 Gastro-esophageal reflux disease without esophagitis; Z79.899 Other long term (current) drug therapy; Z86.73 Personal history of transient ischemic attack (TIA), and cerebral infarction without residual deficits; Z20.822 Contact with and (suspected) exposure to COVID-19; W18.09XA Striking against other object with subsequent fall, initial encounter; Y93.89 Activity, other specified; Y92.89 Other specified places as the place of occurrence of the external cause; Y99.8 Other external cause status; Y90.8 Blood alcohol level of 240 mg/100 ml or more
CPT/HCPCS: 36415; 70450; 72125; 73030; 73070; 80053; 80307; 80320; 81001; 82962; 83735; 85025; 85610; 85730; 87426; 93005; 96360; 96361; 99285; J7030

== ENCOUNTER 2024-07-25 09:57 | Emergency (ER) | payer OTHER ==
[~2024-07-25] VITALS: Ht 182.9 cm; Wt 81.8 kg
--- NOTE | 2024-07-25 10:19 | ED.PDOC ---
History of Present Illness HPI Comments 68 y.o male with PMH of HTN, DM, CVA, gout, ME, coronary bypass graft, and progressive dementia, presents to the ED via EMS for an evaluation of a fall. Patient reports trying to get out of bed this morning, lost his balance causing him to fall on the floor and lost consciousness. EMS reports patient's family found him on the floor, unknown how long he was down for and had urine incontinence. Family mentioned patient presented very weak while assisting him back up. Patient remembers waking up on the floor but is unsure how long he lost consciousness for. Patient denies any other symptoms at this time. Blood glucose on scene was 287, blood pressure of 120/70 and high 90's SPO2 on room air. Patient is alert and oriented x 2. pt initially reports that he got us from bed and fell, but later reports he doesn't remember. Chief Complaint: General Weakness Time Seen by MD: 10:06 Primary Care Provider: ? Reviewed Notes: Nurses Notes, Clinical Account Manager Notes, Medications, Allergies Allergies: Coded Allergies: NO KNOWN ALLERGIES (Unverified , 10/08/20) Home Meds Reported Medications Lisinopril (Lisinopril) 10 Mg Tab, 10 TAB PO BID 07/10/22 Information Source: Patient, Emergency Med Personnel Mode of Arrival: EMS Timing: Hours Duration: Since onset Past Medical History PAST MEDICAL HISTORY: CVA, Dementia, DM, Gout, HTN, ME Surgical History: CABG Surgical History (Other): coronary bypass graft Family History Family History: Reviewed,noncontributory to illness Social History Smoker: Non-Smoker Alcohol: Occasionally Drugs: Denies Drug Use Lives In: Home Constitutional: reports: weakness; denies: chills, diaphoresis, fatigue, fever, malaise, sweats, others EENTM: denies: blurred vision, double vision, ear bleeding, ear discharge, ear drainage, ear pain, ear ringing, eye pain, eye redness, hearing loss, mouth pain, mouth swelling, nasal discharge, nose bleeding, nose congestion, nose pain, photophobia, tearing, throat pain, throat swelling, voice changes, others Respiratory: denies: cough, hemoptysis, orthopnea, SOB at rest, shortness of breath, SOB with excertion, stridor, wheezing, others Cardiovascular: denies: chest pain, dizzy spells, diaphoresis, Dyspnea on exertion, edema, irregular heart beat, left arm pain, lightheadedness, palpitations, PND, syncope, others Gastrointestinal: denies: abdomen distended, abdominal pain, blood streaked bowels, constipated, diarrhea, dysphagia, difficulty swallowing, hematemesis, melena, nausea, poor appetite, poor fluid intake, rectal bleeding, rectal pain, vomiting, others Genitourinary: denies: burning, dysuria, flank pain, frequency, hematuria, incontinence, penile discharge, penile sore, pain, testicle pain, testicle swelling, urgency, others Neurological: denies: dizziness, fainting, headache, left sided numbness, left sided weakness, numbness, paresthesia, pre-existing deficit, right sided numbness, right sided weakness, seizure, speech problems, tingling, tremors, weakness, others Musculoskeletal: denies: back pain, gout, joint pain, joint swelling, muscle pain, muscle stiffness, neck pain, others Integumetry: denies: bruises, change in color, change in hair/nails, dryness, laceration, lesions, lumps, rash, wounds, others Allergic/Immunocompromised: denies: Difficulty Healing, Frequent Infections, Hives, Itching, others Hematologic/Lymphatic: denies: anemia, blood clots, easy bleeding, easy bruising, swollen glands, others Endocrine: denies: excessive hunger, excessive sweating, excessive thirst, excessive urination, flushing, intolerance to cold, intolerance to heat, unexplained weight gain, unexplained weight loss, others Psychiatric: denies: anxiety, bipolar disorder, depression, hopeless, panic disorder, schizophrenia, sleepless, suicidal, others All Other Systems: Reviewed and Negative Physical Exam General Appearance: Normal HEENT: Normal ENT Inspection, TMs Normal Neck: Normal, Normal Inspection Respiratory: Chest Non-Tender, Lungs Clear, No Accessory Muscle Use, No Respiratory Distress, Normal Breath Sounds Cardiovascular: Normal Peripheral Pulses, Regular Rate/Rhythm Breast Exam: Deferred Gastrointestinal: Non Tender, Normal Bowel Sounds, Soft Genitalia: Deferred Pelvic: Deferred Rectal: Deferred Extremities: No calf tenderness, Normal capillary refill, Normal inspection, Normal range of motion, Non-tender, No pedal edema Musculoskeletal : Apperance: Normal Neurologic: Other (no pupil dilation, 2mm pupils ) Cerebellar Function: Normal Reflexes: Normal Skin: Other (no tongue lacerations) Lymphatic: No Adenopathy Was a procedure done? Was a procedure done?: No EKG EKG : Pulse Rate (adult): 92 [place]: Normal Cardiac Rhythm: NSR Block: None Hypertrophy: None ST: Normal Differential Dx Considerations may include: Viral syndrome, dehydration, Influenza syncope, arrhythmias, cva, hypoglycemia, hypotension, ACS, medication effects, vasovagal, positional syncope. head injury X-Ray, Labs, Meds, VS Vital Signs Date Time Temp Pulse Resp B/P (MAP) Pulse Ox O2 Delivery O2 Flow Rate FiO2 07/25/24 14:11 101 18 134/71 (92) 94 07/25/24 12:00 93 28 106/64 (78) 92 07/25/24 11:15 93 07/25/24 10:09 98.2 95 18 132/78 (96) 98 07/25/24 10:07 92 Lab Test 07/25/24 11:48 07/25/24 10:55 Range/Units Troponin I High Sensitivity 5 5 </=54 ng/L White Blood Count 8.7 4.4-10.8 10^3/uL Red Blood Count 4.81 4.5-5.90 10^6/uL Hemoglobin 15.2 13.5-17.5 g/dL Hematocrit 44.4 41.0-53.0 % Mean Corpuscular Volume 92.3 80.0-100.0 fL Mean Corpuscular Hemoglobin 31.5 28.0-32.0 pg Mean Corpuscular Hemoglobin Concent 34.2 32.0-36.0 g/dL Red Cell Distribution Width 15.4 H 11.8-14.3 % Platelet Count 234 140-450 10^3/uL Mean Platelet Volume 8.3 6.9-10.8 fL Neutrophils (%) (Auto) 87.3 H 37.0-80.0 % Lymphocytes (%) (Auto) 2.3 L 10.0-50.0 % Monocytes (%) (Auto) 9.1 0.0-12.0 % Eosinophils (%) (Auto) 0.4 0.0-7.0 % Basophils (%) (Auto) 0.9 0.0-2.0 % Neutrophils # (Auto) 7.6 1.6-8.6 10 ^3/uL Lymphocytes # (Auto) 0.2 L 0.4-5.4 10 ^3/uL Monocytes # (Auto) 0.8 0-1.3 10 ^3/uL Eosinophils # (Auto) 0 0-0.8 10 ^3/uL Basophils # (Auto) 0.1 0-0.2 10 ^3/uL Nucleated Red Blood Cells 0.1 % Platelet Estimate Adequate Clumped Platelets Few Anisocytosis (manual) Slight Sodium Level 134 L 136-145 mmol/L Potassium Level 5.1 3.5-5.1 mmol/L Chloride Level 99 98-107 mmol/L Carbon Dioxide Level 24 20-31 mmol/L Anion Gap 11 5-15 Blood Urea Nitrogen 12 9-23 mg/dL Creatinine 0.98 0.700-1.30 mg/dL Glomerular Filtration Rate Calc 83 >90 mL/min BUN/Creatinine Ratio 12.2 10.0-20.0 Serum Glucose 235 H 74-106 mg/dL Calcium Level 10.3 8.7-10.4 mg/dL Creatine Kinase 60 46-171 U/L CLINICAL INFORMATION: 68 years old, Male; weakness. TECHNIQUE: Single AP portable chest radiograph was obtained. COMPARISON: CHEST PORTABLE on DOS: 07/10/22, CXRP on DOS: 07/10/22, CHEST PORTABLE on DOS: 10/27/20 FINDINGS: Lungs: Atelectasis in the lung bases. No focal consolidation. Likely emphysematous changes and chronic interstitial opacities. Cardiac: Heart size is within normal limits. Stable appearing postsurgical changes. Pulmonary vasculature: Unremarkable. Mediastinum/man: Dense atherosclerotic calcification. Bones: No acute osseous abnormality identified. Other: No other significant findings. IMPRESSION: 1. No focal consolidation or other evidence of acute disease in the chest. 2. Nonacute findings as described above. [place] [address] Ph: [phone] DIAGNOSTIC IMAGING Diagnostic Imaging Report : [id number] Signed PATIENT: LOLA MOONEY ACCT: [id number] UNIT: [id number] : 1955 LOC: ER ROOM / BED: / AGE / SEX: 68 / M ADM STATUS: REG ER SERVICE 1243 ORDERING PHYSICIAN: FRANDY CAVAZOS MD PROCEDURE(s): HWOCT - HEAD WITHOUT CONTRAST REASON: syncope, altered ORDER NUMBER(s): [id number], ACCESSION NUMBER(s): [id number] CLINICAL INFORMATION: 68 years old, Male; syncope, altered mental status. TECHNIQUE: Axial imaging was obtained through the brain without contrast. Coronal and sagittal reformatted images were obtained, reviewed, and stored. Images were reviewed in brain and bone windows. All CT scans at this medical facility are performed using dose modulation techniques as appropriate to a performed exam including the following: Automated exposure control was utilized; adjustment of the MA and/or KV according to patient size; and use of iterative reconstruction technique. CTDIvol = 57.94, 57.94, 0.07 mGy DLP = 2281.81 mGy-cm COMPARISON: CT CERVICAL WITHOUT CONTRAST on DOS: 02/28/23, CT HEAD WITHOUT CONTRAST on DOS: 02/28/23, HEAD WITHOUT CONTRAST on DOS: 07/10/22 FINDINGS: There is no acute intracranial hemorrhage or extraaxial fluid collection. No mass effect or midline shift. Scattered areas of hypoattenuation are seen in the periventricular and subcortical white matter, which are nonspecific but most likely sequelae of small vessel ischemic disease. Atrophic changes with prominence of the ventricles and widening of the sulci. Basal cisterns are patent. The calvarium is unremarkable. Paranasal sinuses and mastoid air cells are clear. IMPRESSION: 1. No CT evidence of acute intracranial abnormality. 2. Nonacute findings as described above. ATED BY: PASTOR LIND DO DICTATED DATE/TIME: 07/25/24 1354 SIGNED BY: PASTOR LIND DO SIGNED DATE/TIME: 07/25/24 1354 CC: Time of 1ST Reevaluation: 10:10 Reevaluation 1ST: Unchanged (rhythm strop, nsr) Time of 2ND Reevaluation: 14:22 Reevaluation 2ND: Unchanged (rhythm strip-nsr) Patient Education/Counseling: Diagnosis, Treatment, Prognosis Family Education/Counseling: No Family Present Additional Information External Notes- 02/28/23- diagnose of ETOH abuse, 07/10/22 DKA Ordered Test- EKG, CBC, CMP , cpk, head ct, cxr,trop Reviewed Results-including Accucheck, CXR, LAB including Troponin and RBC morphology Independent Hx- Paramedics Discuss Tx/Results- Patient, medical personnel, devops consultant CXR: reviewed and agree with radiology: IMPRESSION: 1. No focal consolidation or other evidence of acute disease in the chest. CT Head WO CON: reviewed and agree with radiology- IMPRESSION: 1. No CT evidence of acute intracranial abnormality. 2. Nonacute findings as described above. pt is unclear about how he ended up on the floor. he has a history of cva. it is likely he did have a syncopal episode . he does not have rhabdomyolysis, nor evidence of injuries. however, with his frailty and history, he should be admitted for observation. i will consult Almo. Dr Kaba at [facility] accepted the transfer #[id number] Departure 1 Departure Time of Disposition: 14:43 Impression: Primary Impression: Syncopal episodes Qualified Codes: R55 - Syncope and collapse Disposition: 02 SHORT TERM HOSPITAL Condition: Stable Critical Care Note Critical Care Time?: Yes (55 min-critical care time only) Critical care comment: due to concerns for sudden deterioration of pt's condition, the patient's care required my most attentive level and highest readiness to intervene. i assessed him, ordered the appropriate orders, reviewed the results, and reassessed the patient's response, formulated a care plan, communicated with medical personnel and consultants. total time include at least 50% face-face interaction and does not include any procedures Stability Stability form required: Yes I personally scribed for FRANDY CAVAZOS MD ([place]) on 07/25/24 at 10:19. Electronically submitted by Elif Ramos ([facility]). I personally scribed for FRANDY CAVAZOS MD ([place]) on 07/25/24 at 10:43. Electronically submitted by Elif Ramos ([facility]). I personally scribed for FRANDY CAVAZOS MD ([facility]) on 07/25/24 at 11:25. Electronically submitted by Elif Ramos ([facility]). I personally scribed for FRANDY CAVAZOS MD ([place]) on 07/25/24 at 13:32. Electronically submitted by Elif Ramos ([facility]). I personally scribed for FRANDY CAVAZOS MD ([facility]) on 07/25/24 at 13:33. Electronically submitted by Elif Ramos ([facility]). I personally scribed for FRANDY CAVAZOS MD ([facility]) on 07/25/24 at 14:14. Electronically submitted by Elif Ramos ([facility]). FRANDY CAVAZOS MD Jul 25, 2024 10:19
--- NOTE | 2024-07-25 10:21 | ECG ---
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
[2024-07-25 11:21] LABS: Basophils # (auto) 0.1 10 ^3/uL (0-0.2); Basophils % (auto) 0.9 % (0.0-2.0); Eosinophils # (auto) 0 10 ^3/uL (0-0.8); Eosinophils % (auto) 0.4 % (0.0-7.0); Hematocrit 44.4 % (41.0-53.0); Hemoglobin 15.2 g/dL (13.5-17.5); Lymphocytes # (auto) 0.2 10 ^3/uL (0.4-5.4); Lymphocytes % (auto) 2.3 % (10.0-50.0); Mean Corpuscular Hemoglobin 31.5 pg (28.0-32.0); Mean Corpuscular Hgb Conc. 34.2 g/dL (32.0-36.0); Mean Corpuscular Volume 92.3 fL (80.0-100.0); Monocytes # (auto) 0.8 10 ^3/uL (0-1.3); Monocytes % (auto) 9.1 % (0.0-12.0); Neutrophils # (auto) 7.6 10 ^3/uL (1.6-8.6); Neutrophils % (auto) 87.3 % (37.0-80.0); Nucleated Red Blood Cells % 0.1 %; Platelet Count (auto) 234 10^3/uL (140-450); Red Blood Cells 4.81 10^6/uL (4.5-5.90); Red Cell Distribution Width 15.4 % (11.8-14.3); White Blood Cell 8.7 10^3/uL (4.4-10.8)
--- NOTE | 2024-07-25 11:24 | DVH ---
CLINICAL INFORMATION: 68 years old, Male; weakness. TECHNIQUE: Single AP portable chest radiograph was obtained. COMPARISON: CHEST PORTABLE on DOS: 07/10/22, CXRP on DOS: 07/10/22, CHEST PORTABLE on DOS: 10/27/20 FINDINGS: Lungs: Atelectasis in the lung bases. No focal consolidation. Likely emphysematous changes and chroni c interstitial opacities. Cardiac: Heart size is within normal limits. Stable appearing postsurgical changes. Pulmonary vasculature: Unremarkable. Mediastinum/man: Dense atherosclerotic calcification. Bones: No acute osseous abnormality identified. Other: No other significant findings. IMPRESSION: 1. No focal consolidation or other evidence of acute disease in the chest. 2. Nonacute findings as described above.
[2024-07-25 11:25] LABS: Chloride 99 mmol/L (98-107)
[2024-07-25 11:26] LABS: Anion Gap 11 (5-15); Calcium 10.3 mg/dL (8.7-10.4); Carbon Dioxide 24 mmol/L (20-31); Potassium 5.1 mmol/L (3.5-5.1); Sodium 134 mmol/L (136-145)
[2024-07-25 11:28] LABS: Anisocytosis Slight; Platelet Estimate Adequate
[2024-07-25 11:31] LABS: BUN/Creatinine Ratio 12.2 (10.0-20.0); Blood Urea Nitrogen 12 mg/dL (9-23)
[2024-07-25 11:35] LABS: Glucose 235 mg/dL (74-106)
--- NOTE | 2024-07-25 13:56 | DVH ---
CLINICAL INFORMATION: 68 years old, Male; syncope, altered mental status. TECHNIQUE: Axial imaging was obtained through the brain without contrast. Coronal and sagittal refor matted images were obtained, reviewed, and stored. Images were reviewed in brain and bone windows. A ll CT scans at this medical facility are performed using dose modulation techniques as appropriate to a performed exam including the following: Automated exposure control was utilized; adjustment of the MA and/or KV according to patient size; and use of iterative reconstruction technique. CTDIvol = 57.94, 57.94, 0.07 mGy DLP = 2281.81 mGy-cm COMPARISON: CT CERVICAL WITHOUT CONTRAST on DOS: 02/28/23, CT HEAD WITHOUT CONTRAST on DOS: 02/28/23, HEA D WITHOUT CONTRAST on DOS: 07/10/22 FINDINGS: There is no acute intracranial hemorrhage or extraaxial fluid collection. No mass effect o r midline shift. Scattered areas of hypoattenuation are seen in the periventricular and subcortical w amada matter, which are nonspecific but most likely sequelae of small vessel ischemic disease. Atrophi c changes with prominence of the ventricles and widening of the sulci. Basal cisterns are patent. The calvarium is unremarkable. Paranasal sinuses and mastoid air cells are clear. IMPRESSION: 1. No CT evidence of acute intracranial abnormality. 2. Nonacute findings as described above.
[2024-07-25 14:00] VITALS: PULSE 102; RESP 24; O2SAT 95
[2024-07-25 15:09] LABS: Urine Bacteria None Seen /hpf (None Seen)
[2024-07-25 15:28] LABS: Urine Amorphous Crystal FEW /hpf (None Seen); Urine Blood Negative /uL (Negative); Urine Clarity Clear (Clear); Urine Color Yellow (Yellow); Urine Protein, UAD 2+ (Negative); Urine Urobilinogen Normal (Negative); Urine WBC 1 /hpf (0 - 3)
--- NOTE | 2024-07-25 16:53 | ECG ---
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
[2024-07-25 16:56] VITALS: BP 137/80; PULSE 112; RESP 24; TEMP 98.3; O2SAT 94
== END 2024-07-25 14:47 | disposition short-term general hospital (02) ==
LOC: EDBD 09:57 → EDUNIT# 09:57 → ER 09:57
DX: R55 Syncope and collapse (principal); Z86.73 Personal history of transient ischemic attack (TIA), and cerebral infarction without residual deficits; Z98.890 Other specified postprocedural states
CPT/HCPCS: 36415; 70450; 71045; 80048; 81001; 82550; 84484; 85025; 93005

== ENCOUNTER 2024-10-19 05:30 | Emergency (ER) | payer OTHER ==
[~2024-10-19] VITALS: Ht 177.8 cm; Wt 60.0 kg
--- NOTE | 2024-10-19 06:27 | DVH ---
CHEST RADIOGRAPH Indication: fall, trauma Technique: Single frontal view of the chest was obtained COMPARISON: None FINDINGS: Lines and Tubes: Median sternotomy. Lungs: Mild congestion Pleura: No effusion. No pneumothorax. Cardiomediastinal contours: Cardiomegaly Bones: Unremarkable IMPRESSION: Mild pulmonary vascular congestion.
[2024-10-19 06:56] LABS: Basophils # (auto) 0 10 ^3/uL (0-0.2); Basophils % (auto) 0.2 % (0.0-2.0); Eosinophils # (auto) 0 10 ^3/uL (0-0.8); Eosinophils % (auto) 0.4 % (0.0-7.0); Hematocrit 42.4 % (41.0-53.0); Lymphocytes # (auto) 0.4 10 ^3/uL (0.4-5.4); Lymphocytes % (auto) 3.8 % (10.0-50.0); Mean Corpuscular Hemoglobin 29.9 pg (28.0-32.0); Mean Corpuscular Hgb Conc. 33.1 g/dL (32.0-36.0); Mean Corpuscular Volume 90.3 fL (80.0-100.0); Monocytes # (auto) 1.2 10 ^3/uL (0-1.3); Monocytes % (auto) 12.5 % (0.0-12.0); Neutrophils # (auto) 8.2 10 ^3/uL (1.6-8.6); Neutrophils % (auto) 83.1 % (37.0-80.0); Platelet Count (auto) 200 10^3/uL (140-450); Red Blood Cells 4.69 10^6/uL (4.5-5.90); Red Cell Distribution Width 15.6 % (11.8-14.3); White Blood Cell 9.9 10^3/uL (4.4-10.8)
--- NOTE | 2024-10-19 07:04 | ECG ---
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
[2024-10-19 07:06] LABS: Potassium 3.8 mmol/L (3.5-5.1)
[2024-10-19 07:07] LABS: Anion Gap 12 (5-15); Calcium 9.8 mg/dL (8.7-10.4); Carbon Dioxide 21 mmol/L (20-31)
[2024-10-19 07:12] LABS: BUN/Creatinine Ratio 13.6 (10.0-20.0); Blood Urea Nitrogen 11 mg/dL (9-23)
[2024-10-19 07:14] LABS: Creatine Kinase IFCC 96 U/L (46-171)
[2024-10-19 07:22] LABS: Chloride 98 mmol/L (98-107); Glucose 208 mg/dL (74-106); Sodium 131 mmol/L (136-145)
--- NOTE | 2024-10-19 07:24 | ED.PDOC ---
History of Present Illness HPI Comments 69 year old male brought in by EMS presents to the ED with a chief complaint of back pain s/p fall onset yesterday (10/18/24) around 21:00. Per EMS, patient fell yesterday around 21:00, began experiencing low back pain that worsen this morning. Patient noticed he has been experiencing recent falls, unsure of the cause. Denies any PMHx as well as LOC, head injury, chest pain, shortness of breath, dizziness, blurry vision, headache, fevers, chills, abdominal pain, nausea, vomiting. No other symptoms or modifying factors present at this time. Chief Complaint: Fall Injury Time Seen by MD: 07:04 Reviewed Notes: Medications, Allergies Allergies: Coded Allergies: NO KNOWN ALLERGIES (Unverified , 10/19/24) Information Source: Patient, Emergency Med Personnel Mode of Arrival: EMS Severity: Moderate Timing: Hours Duration: Since onset Prehospital treatment: None Past Medical History PAST MEDICAL HISTORY: CHF, DM, High Lipids, HTN Surgical History: Denies all surgeries Family History Family History: Unknown Social History Smoker: Non-Smoker Alcohol: Denies ETOH Use Drugs: Denies Drug Use Lives In: Home Constitutional: denies: chills, diaphoresis, fatigue, fever, malaise, sweats, weakness, others EENTM: denies: blurred vision, double vision, ear bleeding, ear discharge, ear drainage, ear pain, ear ringing, eye pain, eye redness, hearing loss, mouth pain, mouth swelling, nasal discharge, nose bleeding, nose congestion, nose pain, photophobia, tearing, throat pain, throat swelling, voice changes, others Respiratory: denies: cough, hemoptysis, orthopnea, SOB at rest, shortness of breath, SOB with excertion, stridor, wheezing, others Cardiovascular: denies: chest pain, dizzy spells, diaphoresis, Dyspnea on ex ertion, edema, irregular heart beat, left arm pain, lightheadedness, palpitations, PND, syncope, others Gastrointestinal: denies: abdomen distended, abdominal pain, blood streaked bowels, constipated, diarrhea, dysphagia, difficulty swallowing, hematemesis, melena, nausea, poor appetite, poor fluid intake, rectal bleeding, rectal pain, vomiting, others Genitourinary: denies: burning, dysuria, flank pain, frequency, hematuria, incontinence, penile discharge, penile sore, pain, testicle pain, testicle swelling, urgency, others Neurological: denies: dizziness, fainting, headache, left sided numbness, left sided weakness, numbness, paresthesia, pre-existing deficit, right sided numbness, right sided weakness, seizure, speech problems, tingling, tremors, weakness, others Musculoskeletal: reports: back pain; denies: gout, joint pain, joint swelling, muscle pain, muscle stiffness, neck pain, others Integumetry: denies: bruises, change in color, change in hair/nails, dryness, laceration, lesions, lumps, rash, wounds, others Allergic/Immunocompromised: denies: Difficulty Healing, Frequent Infections, Hives, Itching, others Hematologic/Lymphatic: denies: anemia, blood clots, easy bleeding, easy bruising, swollen glands, others Endocrine: denies: excessive hunger, excessive sweating, excessive thirst, excessive urination, flushing, intolerance to cold, intolerance to heat, unexplained weight gain, unexplained weight loss, others Psychiatric: denies: anxiety, bipolar disorder, depression, hopeless, panic disorder, schizophrenia, sleepless, suicidal, others All Other Systems: Reviewed and Negative Physical Exam General Appearance: No Apparent Distress, Normal, Other (Status post not answering questions very well) HEENT: Normal ENT Inspection, PERRL/EOMI, Pharynx Normal, TMs Normal, Other (No facial asymmetry) Neck: Full Range of Motion, Non-Tender, Normal, Normal Inspection Respiratory: Chest Non-Tender, Lungs Clear, No Accessory Muscle Use, No Respiratory Distress, Normal Breath Sounds Cardiovascular: No Edema, No JVD, No Gallop, Normal Peripheral Pulses, Regular Rate/Rhythm, Systolic Murmur Breast Exam: Deferred Gastrointestinal: No Organomegaly, Non Tender, No Pulsatile Mass, Normal Bowel Sounds, Soft Genitalia: Deferred Pelvic: Deferred Rectal: Deferred Extremities: No calf tenderness, Normal capillary refill, Normal inspection, Normal range of motion, Non-tender, No pedal edema Musculoskeletal : Location: Bilateral Extremity Location: Other (Evaluation to musculoskeletal system no injuries noted) Apperance: Normal Neurologic: Depressed Affect, Motor Weakness, No Sensory Deficits, Speech Problem Cerebellar Function: NOT DONE Reflexes: NOT DONE Skin: Dry, Normal Color, Warm Peripheral Pulses: 1+ carotid (R), 1+ carotid (L) Lymphatic: No Adenopathy Was a procedure done? Was a procedure done?: No EKG EKG : Pulse Rate (adult): 63 Morrison: Normal Cardiac Rhythm: NSR ST: Inf, Lat, Ischemia, Nonsp Differential Dx Considerations may include: Back sprain multiple falls X-Ray, Labs, Meds, VS Vital Signs Date Time Temp Pulse Resp B/P (MAP) Pulse Ox O2 Delivery O2 Flow Rate FiO2 10/19/24 07:49 97.5 93 16 139/79 (99) 96 97.5 10/19/24 07:44 Room Air* 0 21 10/19/24 07:39 63 10/19/24 05:37 93 10/19/24 05:30 98.3 94 18 154/86 (108) 95 Lab Test 10/19/24 09:25 10/19/24 07:19 10/19/24 06:22 Range/Units Troponin I High Sensitivity 7 6 6 </=54 ng/L White Blood Count 9.9 4.4-10.8 10^3/uL Red Blood Count 4.69 4.5-5.90 10^6/uL Hemoglobin 14.0 13.5-17.5 g/dL Hematocrit 42.4 41.0-53.0 % Mean Corpuscular Volume 90.3 80.0-100.0 fL Mean Corpuscular Hemoglobin 29.9 28.0-32.0 pg Mean Corpuscular Hemoglobin Concent 33.1 32.0-36.0 g/dL Red Cell Distribution Width 15.6 H 11.8-14.3 % Platelet Count 200 140-450 10^3/uL Mean Platelet Volume 8.3 6.9-10.8 fL Neutrophils (%) (Auto) 83.1 H 37.0-80.0 % Lymphocytes (%) (Auto) 3.8 L 10.0-50.0 % Monocytes (%) (Auto) 12.5 H 0.0-12.0 % Eosinophils (%) (Auto) 0.4 0.0-7.0 % Basophils (%) (Auto) 0.2 0.0-2.0 % Neutrophils # (Auto) 8.2 1.6-8.6 10 ^3/uL Lymphocytes # (Auto) 0.4 0.4-5.4 10 ^3/uL Monocytes # (Auto) 1.2 0-1.3 10 ^3/uL Eosinophils # (Auto) 0 0-0.8 10 ^3/uL Basophils # (Auto) 0 0-0.2 10 ^3/uL Nucleated Red Blood Cells 0.0 % Sodium Level 131 L 136-145 mmol/L Potassium Level 3.8 3.5-5.1 mmol/L Chloride Level 98 98-107 mmol/L Carbon Dioxide Level 21 20-31 mmol/L Anion Gap 12 5-15 Blood Urea Nitrogen 11 9-23 mg/dL Creatinine 0.81 0.700-1.30 mg/dL Glomerular Filtration Rate Calc 95 >90 mL/min BUN/Creatinine Ratio 13.6 10.0-20.0 Serum Glucose 208 H 74-106 mg/dL Calcium Level 9.8 8.7-10.4 mg/dL Creatine Kinase 96 46-171 U/L [place] [address] Ph: [phone] DIAGNOSTIC IMAGING Diagnostic Imaging Report : [id number] Signed PATIENT: LOLA MOONEY ACCT: [id number] UNIT: [id number] : 1955 LOC: ER ROOM / BED: / AGE / SEX: 69 / M ADM STATUS: REG ER SERVICE 7 ORDERING PHYSICIAN: NICOLA ROWLAND MD PROCEDURE(s): CXRP - CHEST PORTABLE REASON: fall ORDER NUMBER(s): [id number], ACCESSION NUMBER(s): [id number] CHEST RADIOGRAPH Indication: fall, trauma Technique: Single frontal view of the chest was obtained COMPARISON: None FINDINGS: Lines and Tubes: Median sternotomy. Lungs: Mild congestion Pleura: No effusion. No pneumothorax. Cardiomediastinal contours: Cardiomegaly Bones: Unremarkable IMPRESSION: Mild pulmonary vascular congestion. ATED BY: DASH CORRAL MD DICTATED DATE/TIME: 10/19/24621 SIGNED BY: ADSH CORRAL MD SIGNED DATE/TIME: 10/19/24621 CC: X-Ray, Labs, Meds, VS Comment Course in the emergency department eventful patient came in because of fall and complaining of back pain patient is Pradaxa with a history of gout BPH diabetes asthma history of TIA in 1224 with atrial fibrillation The chest x-ray shows pulmonary vascular congestion EKG shows normal sinus rhythm at 93 with a inferior and lateral ischemic changes CBC 9900 with 83% neutrophils and normal H&H BNP sodium 131 blood sugar 208 and CK 96 Troponin six and six Patient will be discharged home to follow up with his PCP Time of 1ST Reevaluation: 07:34 Reevaluation 1ST: Unchanged Patient Education/Counseling: Diagnosis, Treatment, Prognosis Family Education/Counseling: No Family Present Additional Information - The following tests were ordered, and results were reviewed by me: EKG, CREATINE KINASE, BMP, CBC, TROP -x3, UA, XY CHEST - Additional information was gathered from interviewing the following independent Historian: EMS - I reviewed and agreed with the following test results read by other provider: PAXTON CHEST - I discussed treatments and results with medical personnel and: patient Departure 1 Departure Time of Disposition: 09:44 Impression: Primary Impression: Fall at home Additional Impressions: Fall with no injury History of TIA (transient ischemic attack) History of atrial fibrillation Disposition: 01 HOME / SELF CARE / HOMELESS Condition: Fair Discharged With: Self, Tax Analyst Critical Care Note Critical Care Time?: No Stability Stability form required: No Heart Score Heart Score: Heart Score Response (Comments) Value History N/A 0 EKG Repolarization Disturb 1 Age >65 2 Risk Factors 1 or 2 risk factors 1 Troponin Normal limit 0 Total 4 I personally scribed for HEENA SHEPPARD MD ([email or web address]) on 10/19/24 at 07:24. Electronically submitted by Franca Noe ([email or web address]). I personally scribed for HEENA SHEPPARD MD ([email or web address]) on 10/19/24 at 08:55. Electronically submitted by Franca Noe ([email or web address]). I personally scribed for HEENA SHEPPARD MD ([email or web address]) on 10/19/24 at 09:57. Electronically submitted by Franca Noe ([email or web address]). HEENA SHEPPARD MD Oct 19, 2024 07:24
[2024-10-19 07:49] VITALS: BP 139/79; PULSE 93; RESP 16; TEMP 97.5; O2SAT 96
== END 2024-10-19 11:57 | disposition home or self-care (01) ==
LOC: ER 05:30 → MERGE 05:30 → EDBD 05:30 → ER 11:57
DX: I48.91 Unspecified atrial fibrillation (principal); M54.50 Low back pain, unspecified; I11.0 Hypertensive heart disease with heart failure; I50.9 Heart failure, unspecified; E11.9 Type 2 diabetes mellitus without complications; E78.5 Hyperlipidemia, unspecified; Z86.73 Personal history of transient ischemic attack (TIA), and cerebral infarction without residual deficits; W18.39XA Other fall on same level, initial encounter; Y93.89 Activity, other specified; Y92.89 Other specified places as the place of occurrence of the external cause; Y99.8 Other external cause status
CPT/HCPCS: 36415; 71045; 80048; 82550; 84484; 85025; 93005